=== PATIENT | female | born 1980 | race Caucasian/White ===

== ENCOUNTER 2017-10-11 21:41 | Emergency (ER) | payer BC, SELFPAY ==
[2017-10-11 21:41] VITALS: BP 160/83; PULSE 93; RESP 15; TEMP 36.8; O2SAT 98; BMI 36.3
--- NOTE | 2017-10-11 21:48 | RAD_ITS ---
STUDY: X-RAY - RIGHT ANKLE REASON FOR EXAM: Female, 36 years old. Ankle pain. TECHNIQUE: 3 view(s) of the ankle. COMPARISON: None. FINDINGS: Normal visualized distal tibia and fibula. Normal medial and lateral malleoli. Normal tibiotalar articulation and ankle mortise. Normal visualized talus and calcaneus. The visualized subtalar, talonavicular, calcaneocuboid and tarsal articulations are normal. The soft tissue structures are unremarkable. RAD/Ankle min 3 Views IMPRESSION: Normal x-ray examination of the ankle. Electronically Signed: Jessica Black MD at 22:05 EDT Tel , Service support ,
--- NOTE | 2017-10-11 21:56 | ED.VISSUMM ---
- ER Visit Summary Date of Service: 10/11/17 Chief Complaint: [Injury right ankle] History of Present Illness: The patient is a 36 F [presents the emergency department complaint of injury to her right ankle that occurred about a half an hour ago. Patient states that she was coming down some outside steps when she twisted her ankle when she missed a step. Patient did fall but denies any other injuries. Patient having a hard time bearing weight secondary to pain.] Physical Examination: [Right ankle-patient has some mild soft tissue swelling over the lateral malleolus. No pain at the base of the fifth metatarsal. No pain at the proximal fibular head. She is neurovascular intact with normal station normal cap refill HEENT-PERRLA, EOMI. Cranial nerves II through XII grossly intact. TMs clear. Mucous membranes moist. No adenopathy. Cardiovascular-regular rate and rhythm without murmur or ectopy Lungs-clear to auscultation, chest wall stable without crepitus or subcu emphysema Abdomen-normoactive bowel sounds, soft, nontender, no rebound or rigidity, no peritoneal signs. Extremities-intact ?4, normal range of motion, normal pulses, atraumatic] Test Results: X-rays of the right ankle obtained read by myself as no acute fractures, official radiology reading pending [] Emergency Department Course and Treatment: [Patient was placed in an air splint and given crutches] Treatment Plan: [Patient given a prescription for naproxen and Badger for pain. Patient advised to ice and elevate extremity. Patient follow-up with primary care physician in 5-7 days.] Disposition: [Discharged home in stable condition] Impression: [Right ankle sprain] This note was generated with [employer] dictation software. It may contain incorrect words, spelling, and punctuation that were not noted in review of the chart prior to signing ED Disposition - Plan for ED Patient: Chief Complaint: Lower Extremity Injury Referrals: Tunde Galarza MD [Primary Care Provider] -
--- NOTE | 2017-10-11 21:59 | DCINST.ED_ITS ---
ED Disposition - Plan for ED Patient: Chief Complaint: Lower Extremity Injury Instructions: ED Sprain Ankle W X Ray Prescriptions: Hydrocodone Bitart/Apap 5-325 [[place] 5MG-325MG] 1 tab PO Q4H PRN PRN 2 Days #10 tab PRN Reason: Pain Naproxen [Naprosyn] 500 mg PO BID PRN #20 tab Referrals: Tunde Galarza MD [Primary Care Provider] - 5-7 Days
[2017-10-11] MEDS: HYDROcodone Bitartrate/Apap 5/325 Tablet PO (22:16)
[2017-10-11 22:17] VITALS: PULSE 94; RESP 14; O2SAT 98
== END 2017-10-11 22:32 | disposition home or self-care (01) ==
LOC: ED 22:03
PROVIDERS: Emergency Provider Emergency Medicine; Family Provider Family Medicine; PCP Family Medicine
DX: S93.401A Sprain of unspecified ligament of right ankle, initial encounter (principal); X50.1XXA Overexertion from prolonged static or awkward postures, initial encounter; Y93.89 Activity, other specified; Y92.9 Unspecified place or not applicable
CPT/HCPCS: 73610; 99284

== ENCOUNTER 2017-11-18 09:34 | Emergency (ER) | payer BC, SELFPAY ==
[2017-11-18 09:35] VITALS: BP 162/84; PULSE 99; RESP 18; TEMP 36.6; O2SAT 100; BMI 36.5
--- NOTE | 2017-11-18 09:50 | RAD_ITS ---
STUDY: X-RAY CHEST REASON FOR EXAM: Female, 37 years old. Chest pain. TECHNIQUE: PA and lateral views of the chest. COMPARISON: None. FINDINGS: EKG electrodes are seen. Subtle increased markings in the right upper lobe. Questionable early infiltrate. There is no demonstrated pleural abnormality. Normal size heart. Normal mediastinum and clementina. Normal visualized pulmonary arteries. Normal visualized aortic arch and descending thoracic aorta. Normal visualized thoracic spine. Normal visualized ribs, clavicles, and shoulders. There is no demonstrated abnormality of the visualized soft tissue structures of the upper abdomen. RAD/Chest PA and Lateral IMPRESSION: Questionable early right upper lobe infiltrate. Electronically Signed: Slava Bernabe MD at 10:14 EDT Tel [phone], Service support ,
--- NOTE | 2017-11-18 09:50 | EKG12_ITS ---
Test Reason : CHEST PAIN Blood Pressure : / mmHG Vent. Rate : 090 BPM Atrial Rate : 090 BPM P-R Int : 150 ms QRS Dur : 074 ms QT Int : 342 ms P-R-T Axes : 045 048 010 degrees QTc Int : 418 ms Normal sinus rhythm Normal ECG Confirmed by TOMAS VALLEJO MD ([id number]), advertising editor DUSTIN BARRY ([id number]) on 11/20/2017 1:23:06 PM Referred By: ED Confirmed By:TOMAS VALLEJO MD
[2017-11-18 09:51] VITALS: O2SAT 99
--- NOTE | 2017-11-18 09:53 | ED.DCSUM_ITS ---
- ER Visit Summary Date of Service: 11/18/17 Chief Complaint: Right-sided chest pain History of Present Illness: The patient is a 37 F who states that 0430 hours this morning she was awoken from sleep with a sharp right-sided chest pain. She states it is worse with deep inspiration and cough. She denies any rash. She states that she chronically has a cough from smoking. She quit smoking 6 months ago. She denies any history of cancer prior DVT PE recent immobilization or recent travel surgery. Patient states that her father of pulmonary embolism. She notes no exertional symptoms. She states that yesterday she felt fine and did not have any symptoms. Pain is not worse with palpation. She states that she feels it in the front and wraps around to the back about the same level. Physical Examination: Afebrile vital signs are stable Gen: Well-nourished well-developed Head: Normocephalic atraumatic Eyes: Perrl EOMI ENT: TMs clear no rhinorrhea moist mucous membranes Neck: Supple no lymphadenopathy no JVD nontender CVS: Regular rate rhythm no murmurs normal S1-S2 Respiratory: No distress clear to auscultation bilaterally chest nontender Abdomen: Soft nontender nondistended normal bowel sounds no masses Back: Nontender Extremity: Nontender no edema Skin: Normal color no rash Neuro: alert orientated ?3 CN II-XII intact normal strength sensation reflexes gait cerebellar Psych: Normal affect normal mood Test Results: EKG demonstrates a sinus rhythm at a rate of 90 CBC BMP troponin d -dimer test within the normal limits or negative. Chest x-ray showed a possible right upper lobe pneumonia. CT Luanne of the chest did not demonstrate an obvious pulmonary embolism. Is a 2.3 x 1.9 x 1.7 cm mass abutting the anterior surface of the right upper lobe. Could represent neoplasm versus atypical pneumonia. Emergency Department Course and Treatment: LEENA score 0 the patient will be started on doxycycline. I spoke with her primary care physician Dr. Galarza at 1148 hrs to ensure follow-up for repeat imaging. Patient understands our plan. Impression: 1. Chest pain 2. Atypical pneumonia This note was generated with [employer] software. It may contain incorrect words, spelling, and punctuation that were not noted in review of the chart prior to signing ED Disposition - Plan for ED Patient: Disposition: Home or Assisted Living Chief Complaint: Chest Other Instructions: ED Pneumonia Adult Prescriptions: Doxycycline Monohydrate 100 mg PO BID #14 cap Referrals: Tnude Galarza MD [Primary Care Provider] - (call to arrange follow up)
[2017-11-18] MEDS: Ketorolac 30 MG/ML Syringe IV (09:54)
[2017-11-18 10:00] LABS: Absolute Lymphocyte Count 1.53 X10^3/ul (0.83-4.51); Absolute Neutrophil Count 5.7 X10^3/uL (2.0-7.7); Basophil# 0.06 X10^3/uL; Basophil% 0.8 % (0-1); Eosinophil# 0.15 X10^3/uL; Eosinophils% 1.9 % (0-5); Hematocrit 38.8 % (37-47); Hemoglobin 13.1 g/dl (12.0-15.0); Lymphocyte # 1.53 X10^3/ul (4.0); Lymphocyte % 19.3 % (19-41); Mean Corp Hgb Conc 33.8 g/gl (32-36); Mean Corpuscular Hgb 28.7 pg (27.0-32.0); Mean Corpuscular Volume 85.1 fL (81-99); Mean Platelet Vol. 10.4 fl (6.2-12.0); Monocyte# 0.46 X10^3/uL; Monocyte% 5.8 % (0-10); Neutrophil # 5.72 X10^3/uL (2.7-7.7); Neutrophil % 72.1 % (47-70); POSITIVE COUNT NO; POSITIVE DIFFERENTIAL NO; POSITIVE MORPHOLOGY NO; Platelet Count 329 K/mm3 (150-450); RBC Distribution Width CV 13.1 % (11.6-14.6); RBC Distribution Width SD 40.1 fl (35.1-43.9); Red Blood Count 4.56 M/mm3 (4.2-5.4); White Blood Count 7.9 K/mm3 (4.4-11.0)
[2017-11-18 10:17] LABS: D-Dimer Quantitative (DVT/PE) 0.29 FEU/ug/m (0.27-0.49)
[2017-11-18 10:18] LABS: Anion Gap 9 (5-15); BUN 15 mg/dL (7-18); BUN/Creat Ratio 16.1 RATIO (10-20); Calcium,Total 9.3 mg/dL (8.5-10.1); Chloride 102 mmol/L (98-107); Creatinine, Serum 0.93 mg/dL (0.55-1.02); EST Glomerular Filtration Rate 73 mL/min (>60); Est Glom Filt Rate - Afr Amer 88 mL/min (>60); Estimated Creatinine Clearance 82.11 ml/min; Glucose 97 mg/dL (74-106); Potassium 3.8 mmol/L (3.5-5.1); Sodium Level 137 mmol/L (136-145)
[2017-11-18 10:44] LABS: Pregnancy, Serum, hCG Quali. NEGATIVE Negative (0-9 Nonpreg)
--- NOTE | 2017-11-18 10:55 | CT_ITS ---
STUDY: CTA CHEST REASON FOR EXAM: Female, 37 years old. Right-sided chest pain. RADIATION DOSAGE (If Supplied By Facility): CTDIvol = ( 18.07 ) mGy, DLP = ( 629.69 ) mGycm TECHNIQUE: The examination was performed with the intravenous administration of 75CC ml of Isovue 300 contrast material. Post-processing of the angiographic images was performed, with multiplanar reformation and MIP (maximum intensity projection) reconstruction. Individualized dose optimization techniques were used for this CT. COMPARISON: None. FINDINGS: Less than optimal contrast enhancement of the main pulmonary artery and right and left pulmonary arteries. Suboptimal contrast enhancement of the bilateral peripheral pulmonary arteries. No central pulmonary emboli. Peripheral pulmonary emboli cannot be evaluated. Normal thoracic aorta and visualized great vessels. There is no demonstrated aortic dissection. Normal heart and pericardium. Normal mediastinum. Normal hilar regions. Normal visualized trachea and bronchi. The lungs are well expanded. 2.3 x 1.9 x 1.7 cm mass near the anterior surface of the anterior segment of the right upper lobe. This is worrisome for neoplasm. No other pulmonary nodules. Normal pleura. Normal chest wall structures. Minimal anterior wedging of the T8 superior endplates may be secondary to remote injury. No acute osseous abnormality. Prominent limbs of the left adrenal gland is suggestive of hyperplasia. Normal right adrenal gland. CT/CTA Chest W/WO Contrast IMPRESSION: 1. Less than optimal contrast enhancement of the main pulmonary artery and right and left pulmonary arteries. No suspicious central pulmonary emboli. 2. Suboptimal contrast enhancement of the bilateral peripheral pulmonary arteries. Peripheral pulmonary emboli cannot be evaluated. 3. No CTA evidence of thoracic aortic aneurysm or thoracic aortic dissection. 4. 2.3 x 1.9 x 1.7 cm mass abutting the anterior surface of the anterior segment of the right upper lobe. This is worrisome for neoplasm but atypical pneumonia simulating neoplasm cannot be entirely excluded. Comparison with serial chest radiographs will help clarify if they are available. This is feasible for CT-guided core biopsy and will be helpful if this does not resolve in one month. Electronically Signed: Paul Lynch MD at 11:36 EDT , Service support ,
[2017-11-18 11:52] VITALS: BP 108/74; PULSE 71; RESP 15; O2SAT 99
== END 2017-11-18 11:56 | disposition home or self-care (01) ==
PROVIDERS: Emergency Provider Emergency Medicine; Family Provider Family Medicine; PCP Family Medicine
DX: R07.9 Chest pain, unspecified (principal); J18.9 Pneumonia, unspecified organism; Z87.891 Personal history of nicotine dependence; K21.9 Gastro-esophageal reflux disease without esophagitis
CPT/HCPCS: 71046; 71275; 80048; 84484; 84703; 85025; 85379; 93005; 96374; 99285; Q9967; A4216

== ENCOUNTER 2023-12-19 22:55 | Inpatient (IN) | payer BC, SELFPAY ==
[2023-12-19 22:55] VITALS: BP 168/109; PULSE 85; RESP 16; TEMP 36.5; O2SAT 97; BMI 39.2
--- NOTE | 2023-12-19 23:20 | EKG12_ITS ---
Test Reason : CP Blood Pressure : / mmHG Vent. Rate : 065 BPM Atrial Rate : 065 BPM P-R Int : 154 ms QRS Dur : 078 ms QT Int : 394 ms P-R-T Axes : 057 039 031 degrees QTc Int : 409 ms Normal sinus rhythm ST elevation consider inferior injury or acute infarct ACUTE MT / STEMI Abnormal ECG Confirmed by Ilan Chawla ([id number]), movie editor WU RAZO ([id number]) on 12/21/2023 9:38:28 AM Referred By: TINA Confirmed By:Ilan Chawla
--- NOTE | 2023-12-19 23:28 | ED.VIS.CHEST ---
HPI History of Present Illness Chief Complaint: Chest Pain Informant: patient Narrative Narrative: Patient presents from work dull chest pain 9 PM. She runs [employer]. No dyspnea nausea. She reports 7 PM she noted tingling bilateral feet that moved up her legs into her chest and out from the shoulder to the fingers. No history of similar. Denies recent illness. States 3 days ago was placed on a Medrol Dosepak by her PCP due to myalgias and tendinitis. She had no recent cough or viral illness. Tobacco history father with ME at the age of 40-50. She is on medications for hypertension. Denies diabetes or hyperlipidemia. Denies any recent travel, surgeries, or immobilizations. No history of PE or DVT. Denies any history of stress test or cardiac cath. Reports has had EKGs in the past with no abnormalities. Prior Similar Symptoms: No CVD Risk Factors: Positive for Hypertension, Family History 1' </=55 and Smoking; Negative for Diabetes or Hypercholesterolemia PE Risk Factors: Negative for Recent Travel/Surgery, Recent Immobilization, Prior DVT or PE or OCP + Smoking + >/=35 [facility] Medical History (Updated 12/20/23 @ 01:[address] Yusef Juarez DO) Tachycardia Anxiety Hypertension Home Medications ?Medication ?Instructions ?Recorded ?Last Taken ?Type amlodipine 10 mg tablet 10 mg PO DAILY 12/19/23 Unknown History esomeprazole magnesium 40 mg 40 mg PO DAILY 12/19/23 Unknown History capsule,delayed release fluoxetine 10 mg capsule 10 mg PO DAILY 12/19/23 Unknown History fluoxetine 20 mg capsule 20 mg PO DAILY 12/19/23 Unknown History metoprolol succinate 25 mg 25 mg PO DAILY 12/19/23 Unknown History tablet,extended release 24 hr prednisone 10 mg tablet mg PO 12/19/23 Unknown History Allergy/AdvReac Type Severity Reaction Status Date / Time acetaminophen (From Vicodin) Allergy Intermediate Rash Verified 12/19/23 22:56 hydrocodone (From Vicodin) Allergy Intermediate Rash Verified 12/19/23 22:56 cephalexin (From Keflex) Allergy Hives Verified 12/19/23 22:56 Social History (System 02/12/21 @ 10:44 by Taz Velasquez) Smoking Status: Current every day smoker tobacco type: cigarettes EXAM Physical Exam Const Vital Signs: 12/19/23 22:55 12/19/23 23:29 12/19/23 23:34 Temperature 97.7 F L Temperature Source Oral Pulse Rate 85 Respiratory Rate 16 Respiratory Effort Normal Non-Labored Respiratory Pattern Blood Pressure 168/109 H Blood Pressure Mean 128 Pulse Ox 97 Oxygen Delivery Method Room Air Room Air 12/19/23 23:34 12/20/23 00:55 Temperature Temperature Source Pulse Rate 64 Respiratory Rate 12 Respiratory Effort Normal Non-Labored Respiratory Pattern Normal Blood Pressure 152/83 H Blood Pressure Mean 106 Pulse Ox 95 Oxygen Delivery Method Room Air Heart Score History: Moderately Suspicious ECG: Nonspecific Repolarization Age: </= 45 years Risk Factors: >/= 3 Risk Factors or History of CAD Troponin: >/=3 x Normal Limit Score: 6 MDM MDM MDM Narrative Medical decision making narrative: Interventions / MDM: Differential diagnosis: NSTEMI, chest pain, paresthesia Diagnosis considered but do not suspect: My EKG interpretation: Sinus rate of 65, slight elevations in inferior leads however no depressions. Compared to EKG November 2017 this was not there. EKG #2 at 0006: Unchanged. Imaging independently reviewed and interpreted by myself: Chest x-ray 1 view: No acute process. CTA chest abdomen pelvis: External documents reviewed: N/A Test considered but not ordered:N/A ED course: EKG slight elevations with no depressions inferior leads. Cardiac labs ordered including aspirin. I spoke with specimen preparation assistant Dr. Jolly at 2327 after evaluating the patient. Reports no clear evidence of STEMI at this time. Agrees with a cardiac workup. He would like a repeat EKG in 15 minutes and reevaluation the patient. Of note tingling going up the legs however at the arms went proximal to distal, less consistent with Guillain-Beltre? syndrome. She has no family history of Guillain-Beltre?. 2355: Symptoms subsided only mild tingling her feet. Repeat EKG ordered. Blood work pending. 0010: EKG unchanged. Cardiac enzyme is pending. Chest x-ray negative for any acute process. 0020: Cardiac enzyme returned at 294. Patient chest pain-free. I rediscussed with television reporter Dr. Jolly, patient being chest pain-free will place a nitro paste. Heparin drip will be ordered. With her atypical tingling the feet, she does have pulses without any cyanosis. He would like CT angiogram chest abdomen pelvis ordered for evaluation of the aorta. Would like her admitted to the ICU once this is ruled out. Will start Brilinta if CT negative. 0115: CT scan of discussed with radiologist, noted intimal flap in for aorta. There is no dissection and no aneurysms. He states likely incidental and chronic. Recommended CT scan follow-up in 3 months. Patient confirms there is been no trauma no MVAs here recently. Remains chest pain-free. Brilinta was ordered. Will discuss with hospitalist for admission to the ICU. We did discuss if any return of chest pain symptoms to notify us and to discuss with cardiology any changes. Re-evaluation: stable Disposition discussed with patient/family/significant other: Patient and significant other Case discussed with consulting clinician: Interventional cardiology, hospitalist This note was generated with [employer] dictation software. It may contain incorrect words, spelling, and punctuation that were not noted in checking the note before signing. Lab Data Attestation: I reviewed the patient's lab results. Labs: Laboratory Results - last 24 hr 12/19/23 12/20/23 23:32 00:22 WBC 10.7 RBC 4.21 Hgb 12.2 Hct 37.0 MCV 87.9 MCH 29.0 MCHC 33.0 RDW Std Deviation 47.5 H RDW Coeff of Beba 14.8 H Plt Count 347 MPV 11.3 Immature Gran % (Auto) 0.300 Neut % (Auto) 59.2 Lymph % (Auto) 31.0 [place] % (Auto) 8.0 Eos % (Auto) 0.7 Baso % (Auto) 0.8 Absolute Neuts (auto) 6.4 Absolute Lymphs (auto) 3.32 Nucleated RBC % 0 PT 14.0 INR 1.1 APTT 24.2 Sodium 136 Potassium 3.5 Chloride 102 Carbon Dioxide 26.0 Anion Gap 8 BUN 23 H Creatinine 1.11 H Estim Creat Clear Calc 86.81 Est GFR (MDRD) Af Amer 69 Est GFR (MDRD) Non-Af 57 L BUN/Creatinine Ratio 20.7 H Glucose 97 Calcium 9.2 Troponin I High Sens 294 H* Serum , Qual NEGATIVE Radiography Diagnostic Testing: Clinical Impression(s) from Imaging Studies Chest X-Ray 12/19/23 23:42 IMPRESSION: No radiographic evidence of acute cardiopulmonary disease. Electronically Signed: Toni Keene MD at 0:15 EDT , Chest/Abdomen/Pelvis CTA 12/20/23 00:27 IMPRESSION: 1. No significant abnormalities involving the thoracic aorta, no pulmonary embolism. 2. Small linear flap in the abdominal aorta below the level of the renal arteries measuring 9 x 6 mm. This is not a true dissection flap, and may be chronic, but a follow-up CT in 3 months is recommended to evaluate for stability. 3. Hepatomegaly with fatty infiltration. N.B. : The above Results were Read Back by Toni Keene MD to Yusef Juarez DO, and understanding confirmed on 12/20/2023 01:15:16 (ET). Electronically Signed: Toni Keene MD at 1:16 EDT , Critical Care Time Critical Care Time: Yes Critical care time (excluding procedures): 30-74 minutes, Discussing w/Patient &/or Family/Quality Cloth Tester, Discussing w/Consultants, Arranging Admission or Transfer, Performing Direct Patient Care at Bedside and - (35 minutes) Discharge Plan Dx/Rx/DC Orders Clinical Impression: Non-ST elevation ME (NSTEMI), Chest pain, Paresthesia, History of hypertension, Tobacco dependence Disposition Disposition: Acute Care Hospital [facility]
[2023-12-19] MEDS: Aspirin 81 MG TAB.CHEW 324 MG PO (23:39)
--- NOTE | 2023-12-19 23:42 | RAD_ITS ---
EXAM: XR CHEST, 1 VIEW CLINICAL INDICATION: chest pain TECHNIQUE: Frontal view of the chest. COMPARISON: No relevant prior studies available. FINDINGS: LUNGS AND PLEURAL SPACES: Unremarkable. No consolidation or edema. No pneumothorax. No effusion. HEART: Unremarkable. Cardiac silhouette not enlarged. MEDIASTINUM: Central airways and mediastinal contour are unremarkable. BONES/JOINTS: Unremarkable. No acute fracture. SOFT TISSUES: Unremarkable. RAD/Chest 1 View (Portable) IMPRESSION: No radiographic evidence of acute cardiopulmonary disease. Electronically Signed: Toni Keene MD at 0:15 EDT ,
--- NOTE | 2023-12-19 23:59 | EKG12_ITS ---
Test Reason : REPEAT Blood Pressure : / mmHG Vent. Rate : 060 BPM Atrial Rate : 060 BPM P-R Int : 150 ms QRS Dur : 080 ms QT Int : 408 ms P-R-T Axes : 060 040 031 degrees QTc Int : 408 ms Normal sinus rhythm with sinus arrhythmia Nonspecific ST abnormality Abnormal ECG Confirmed by Ilan Chawla ([id number]), features editor WU RAZO ([id number]) on 12/21/2023 9:38:44 AM Referred By: ANGELA Confirmed By:Ilan Chawla
[2023-12-20] VITALS (16 sets, daily range): BP systolic 114–152; BP diastolic 63–91; PULSE 58–68; RESP 12–19; TEMP 36.3–36.9; O2SAT 94–98; BMI 38.9
[2023-12-20 00:03] LABS: Internal QC Validated? YES +Cl - CLEAR BKGD; Pregnancy, Serum, hCG Quali. NEGATIVE Negative
[2023-12-20 00:17] LABS: Anion Gap 8 (5-15); BUN 23 mg/dL (7-18); BUN/Creat Ratio 20.7 RATIO (10-20); Calcium,Total 9.2 mg/dL (8.5-10.1); Chloride 102 mmol/L (98-107); Creatinine, Serum 1.11 mg/dL (0.55-1.02); EST Glomerular Filtration Rate 57 mL/min (>60); Est Glom Filt Rate - Afr Amer 69 mL/min (>60); Estimated Creatinine Clearance 86.81 ml/min; Glucose 97 mg/dL (74-106); Potassium 3.5 mmol/L (3.5-5.1); Sodium Level 136 mmol/L (136-145); Troponin-I HS (w/2H Reflex) 294 pg/mL (3.0-54.0)
[2023-12-20 00:19] LABS: Absolute Lymphocyte Count 3.32 X10^3/uL (0.83-4.51); Absolute Neutrophil Count 6.4 X10^3/uL (2.0-7.7); Basophil# 0.09 X10^3/uL; Basophil% 0.8 % (0-1); Eosinophil# 0.07 X10^3/uL; Eosinophils% 0.7 % (0-5); Hemoglobin 12.2 g/dL (12.0-15.0); Lymphocyte # 3.32 X10^3/ul (0.83-4.51); Mean Corpuscular Volume 87.9 fL (81-99); Mean Platelet Vol. 11.3 fl (6.2-12.0); Monocyte# 0.86 X10^3/uL; NRBC Flagged by Analyzer 0 % (0-5); Neutrophil # 6.35 X10^3/uL (2.7-7.7); Neutrophil % 59.2 % (47-70); Platelet Count 347 K/mm3 (150-450); RBC Distribution Width CV 14.8 % (11.6-14.6); RBC Distribution Width SD 47.5 fl (35.1-43.9); Red Blood Count 4.21 M/mm3 (4.2-5.4); White Blood Count 10.7 K/mm3 (4.4-11.0)
--- NOTE | 2023-12-20 00:27 | CT_ITS ---
EXAM: CT ANGIOGRAPHY CHEST, ABDOMEN AND PELVIS WITH INTRAVENOUS CONTRAST CLINICAL INDICATION: chest pain TECHNIQUE: Helically acquired angiography images were obtained of the chest, abdomen and pelvis with intravenous contrast. This CT exam was performed using one or more of the following dose reduction techniques: automated exposure control, adjustment of the mA and/or kV according to patient size, and/or use of iterative reconstruction technique. MIP reconstructed images were created and reviewed. CONTRAST: IV 100mL Isovue-370 RADIATION DOSE: CTDIvol = 13.04 mGy, DLP = 1328.12 mGy-cm COMPARISON: No relevant prior studies available. FINDINGS: VASCULATURE: AORTA: Small linear flap in the abdominal aorta below the level of the renal arteries measuring 9 x 6 mm. PULMONARY ARTERIES: No filling defects identified in the pulmonary arteries to suggest pulmonary embolism. Normal in caliber. GREAT VESSELS OF AORTIC ARCH: Unremarkable. Normal in caliber. No dissection. CELIAC TRUNK AND MESENTERIC ARTERIES: No acute findings. No occlusion or significant stenosis. No dissection. RENAL ARTERIES: No acute findings. No occlusion or significant stenosis. No dissection. ILIAC ARTERIES: No acute findings. No occlusion or significant stenosis. No dissection. CHEST: LUNGS AND PLEURAL SPACES: Unremarkable. No mass. No consolidation or edema. No pleural effusion or thickening. No pneumothorax. HEART: Unremarkable. Heart size is normal. No pericardial effusion. MEDIASTINUM: Unremarkable. No mediastinal or hilar adenopathy. Esophagus is unremarkable. No hiatal hernia. THYROID: Unremarkable. No thyroid lesions. ABDOMEN: LIVER: Hepatomegaly with fatty infiltration. GALLBLADDER AND BILE DUCTS: Unremarkable. No calcified gallstones. No gallbladder distention or wall edema. No intra- or extrahepatic biliary ductal dilation. PANCREAS: Unremarkable. No focal cystic or solid mass. SPLEEN: Unremarkable. Normal size without focal cystic or solid mass. ADRENALS: Unremarkable. No nodules. KIDNEYS AND URETERS: Unremarkable. Normal renal size and position. No hydronephrosis. STOMACH AND BOWEL: Unremarkable. No stomach or bowel distention. No focal inflammatory change. PELVIS: APPENDIX: The appendix is normal. BLADDER: Unremarkable. REPRODUCTIVE: Unremarkable as visualized. No mass. CHEST, ABDOMEN and PELVIS: INTRAPERITONEAL SPACE: Unremarkable. No ascites or other fluid collection. No free air. BONES/JOINTS: Unremarkable. No suspicious lytic or blastic abnormality. SOFT TISSUES: Unremarkable. No discrete abdominal or pelvic wall hernia. LYMPH NODES: Unremarkable. No enlarged lymph nodes. CT/CTA Chst, Abd, Pel W and/or WO IMPRESSION: 1. No significant abnormalities involving the thoracic aorta, no pulmonary embolism. 2. Small linear flap in the abdominal aorta below the level of the renal arteries measuring 9 x 6 mm. This is not a true dissection flap, and may be chronic, but a follow-up CT in 3 months is recommended to evaluate for stability. 3. Hepatomegaly with fatty infiltration. N.B. : The above Results were Read Back by Toni Keene MD to Yusef Juarez DO, and understanding confirmed on 12/20/2023 01:15:16 (ET). Electronically Signed: Toni Keene MD at 1:16 EDT ,
[2023-12-20 00:38] LABS: International Normalized Ratio 1.1
[2023-12-20 00:39] LABS: Partial Thromboplast Time 24.2 Seconds (24.1-36.2)
[2023-12-20] MEDS: Heparin Injection (Vial) 5,000 UNIT/ML VIAL 4000 UNIT IV (00:52)
[2023-12-20] MEDS: HEPARIN/D5w 25,000 UNITS 25,000 UNITS/250 ML IV.SOLN. 10 UNITS CONT INF (00:52)
[2023-12-20] MEDS: Nitroglycerin Oint 1 INCH PACKET TD (00:55)
--- NOTE | 2023-12-20 01:23 | PCM.HP.STD ---
[facility] - General General Date of Admission: 12/20/23 Date of Service: 12/20/23 Chief Complaint: Chest Pain and Tingling in Fingers. HPI Narrative LISA CALLEJAS, is a 43 F with a past medical history of essential hypertension, tobacco abuse, overweight; with BMI of 39.3 this admission, positive family history of premature coronary artery disease in her father who had an MD at ~45, history of depression; on fluoxetine, GERD; on Esomeprazole, listed allergy to acetaminophen (rash), listed allergy to hydrocodone (rash), listed allergy to Keflex (hives) and recently diagnosed myalgias and tendinitis; with her PCP starting on Medrol Dosepak ~3 days ago who presents to [facility] ER complaining of chest pain and tingling in her fingers. Ms. Callejas reports her symptoms began approximately 3 hours prior to arrival when she experienced bilateral tingling in her feet and moved up into her legs and chest and from there to her shoulders and fingers. Then around 9 PM she developed chest pain at rest that was substernal, pressure-like, with a tingling sensation in her extremities with nothing seeming to make the pain better or worse. She denies a history of similar previous episodes, recent medication changes, recent trauma or recent travel. There was no report of fever, chills, nausea, vomiting or diaphoresis. In the ER she was noted to have an elevated initial troponin of 294 pg/mL followed by a second upward trending troponin of 773 pg/mL consistent with suspected non-ST elevation MD with CT scan of the abdomen and pelvis revealing no PE but did reveal a small linear flap in the abdominal aorta below the level of the renal arteries measuring to ~9 mm x ~6 mm that was not suspected to be a true dissection flap and is likely chronic with follow-up CT in 3 months recommended to evaluate for stability along with incidentally noted Hepatomegaly with Fatty Infiltration. She was then admitted to the ICU for ongoing treatment for stay with expected to extend beyond 2 midnights. [facility] Medical History Tachycardia Anxiety Hypertension Home Medications ?Medication ?Instructions ?Recorded ?Last Taken ?Type amlodipine 10 mg tablet 10 mg PO DAILY 12/19/23 Unknown History esomeprazole magnesium 40 mg 40 mg PO DAILY 12/19/23 Unknown History capsule,delayed release fluoxetine 10 mg capsule 10 mg PO DAILY 12/19/23 Unknown History fluoxetine 20 mg capsule 20 mg PO DAILY 12/19/23 Unknown History metoprolol succinate 25 mg 25 mg PO DAILY 12/19/23 Unknown History tablet,extended release 24 hr prednisone 10 mg tablet mg PO 12/19/23 Unknown History Allergy/AdvReac Type Severity Reaction Status Date / Time acetaminophen (From Vicodin) Allergy Intermediate Rash Verified 12/19/23 22:56 hydrocodone (From Vicodin) Allergy Intermediate Rash Verified 12/19/23 22:56 cephalexin (From Keflex) Allergy Hives Verified 12/19/23 22:56 Social History Smoking Status: Current every day smoker tobacco type: cigarettes ROS ROS Narrative Review of systems: Constitutional: Patient denies fever or chills. Eyes: Patient denies changes in vision or discharge from eyes. ENT: Patient denies runny nose, sore throat or ear pain. Resp: Patient denies SOB or cough. CV: Patient admits to chest pain with paresthesias in her extremities as per HPI. GI: Patient denies abdominal pain, nausea, vomiting, diarrhea or constipation. : Patient denies dysuria or hematuria. MSK: Patient denies arthralgias or myalgias. Skin: Patient denies rash, abscess or jaundice. Neuro: Patient admits to paresthesias in her extremities as per HPI. She denies headache or focal neurologic weakness. Psych: Patient admits to heightened anxiety due to her chest pain and paresthesias but she denies SI or HI. Hematology: Patient denies easy bleeding or easy bruisability. Endocrinology: Patient denies polyuria, polydipsia or polyphagia. 14 point ROS otherwise negative except for positives noted above in HPI. Vital Signs Vital Signs Vital Signs: 12/19/23 22:55 12/19/23 23:29 12/19/23 23:34 Temperature 97.7 F L Temperature Source Oral Pulse Rate 85 Respiratory Rate 16 Respiratory Effort Normal Non-Labored Respiratory Pattern Blood Pressure 168/109 H Blood Pressure Mean 128 Pulse Ox 97 Oxygen Delivery Method Room Air Room Air 12/19/23 23:34 12/20/23 00:55 Temperature Temperature Source Pulse Rate 64 Respiratory Rate 12 Respiratory Effort Normal Non-Labored Respiratory Pattern Normal Blood Pressure 152/83 H Blood Pressure Mean 106 Pulse Ox 95 Oxygen Delivery Method Room Air Weight Weight: 250 lb 11.2 oz Body Mass Index (BMI) 39.2 Physical Exam Const alert, oriented x3 and no apparent distress Constitutional Narrative: Patient is obese. General Appearance: cooperative HEENT normocephalic, head/scalp atraumatic, hearing grossly normal bilaterally and moist oral mucous membranes Eyes PERRL and EOMs intact bilaterally Neck no lymphadenopathy and supple Resp normal respiratory effort, no retractions, no use of accessory muscles and clear to auscultation bilaterally Cardio regular rate and regular rhythm GI normal to inspection, nondistended, normoactive bowel sounds, soft to palpation, non-tender and non-distended GI Narrative: Obese. Extremity normal to inspection, full ROM and no clubbing, cyanosis or edema Skin Skin Narrative: Patient has no evidence of rash, abscess or jaundice. Neuro oriented x3, CN's II-XII intact bilaterally, moves all extremities and no focal motor deficits Sensorium / Orientation: awake, alert, oriented to person, oriented to place and oriented to time Speech: speech normal Psych Mood & Affect: anxious Results Medical Records Data Attestation: I reviewed the patient's medical records Lab / Micro Data Attestation: I reviewed the patient's lab results. 12/19/23 23:32 12/19/23 23:32 Labs: Laboratory Results - last 24 hr 12/19/23 23:32: WBC 10.7, RBC 4.21, Hgb 12.2, Hct 37.0, MCV 87.9, MCH 29.0, MCHC 33.0, RDW Std Deviation 47.5 H, RDW Coeff of Beba 14.8 H, Plt Count 347, MPV 11.3, Immature Gran % (Auto) 0.300, Neut % (Auto) 59.2, Lymph % (Auto) 31.0, [place] % (Auto) 8.0, Eos % (Auto) 0.7, Baso % (Auto) 0.8, Absolute Neuts (auto) 6.4, Absolute Lymphs (auto) 3.32, Nucleated RBC % 0, Sodium 136, Potassium 3.5, Chloride 102, Carbon Dioxide 26.0, Anion Gap 8, BUN 23 H, Creatinine 1.11 H, Estim Creat Clear Calc 86.81, Est GFR (MDRD) Af Amer 69, Est GFR (MDRD) Non-Af 57 L, BUN/Creatinine Ratio 20.7 H, Glucose 97, Calcium 9.2, Troponin I High Sens 294 H*, Serum , Qual NEGATIVE 12/20/23 00:22: PT 14.0, INR 1.1, APTT 24.2 Imaging Radiology Impression Chest X-Ray 12/19/23 23:42 IMPRESSION: No radiographic evidence of acute cardiopulmonary disease. Electronically Signed: Toni Keene MD at 0:15 EDT Reading Location ID and State: [facility] / [place] Tel , Service support , Chest/Abdomen/Pelvis CTA 12/20/23 00:27 IMPRESSION: 1. No significant abnormalities involving the thoracic aorta, no pulmonary embolism. 2. Small linear flap in the abdominal aorta below the level of the renal arteries measuring 9 x 6 mm. This is not a true dissection flap, and may be chronic, but a follow-up CT in 3 months is recommended to evaluate for stability. 3. Hepatomegaly with fatty infiltration. N.B. : The above Results were Read Back by Toni Keene MD to Yusef Juarez DO, and understanding confirmed on 12/20/2023 01:15:16 (ET). Electronically Signed: Toni Keene MD at 1:16 EDT Reading Location ID and State: [facility] / [place] Tel , Service support , Assessment & Plan Assessment/Plan (1) Non-ST elevation [place] (NSTEMI): (2) Chest pain: QUALIFIERS: Chest pain type: chest pain due to myocardial ischemia Ischemic chest pain type: unspecified angina pectoris type Qualified Code(s): I25.9 - Chronic ischemic heart disease, unspecified (3) Paresthesia: (4) History of hypertension: (5) Tobacco dependence: (6) Family history of cardiac disorder in father: PLAN: Plan 1. Elevated initial troponin of 294 pg/mL followed by a second upward trending troponin of 773 pg/mL consistent with suspected non-ST elevation MD - Admit to ICU. Continue IV heparin per cardiac protocol with ECASA and Brilinta. Serialize troponin. Check echocardiogram to evaluate LVEF. Give Morphine IV prn for severe (level 6-10/10) pain. Finally, we will consult [facility] to see this patient on-rounds in the AM for further recommendations regarding [facility] this admission with help appreciated in advance. 2. CT scan of the abdomen and pelvis done for paresthesias revealing no PE but did reveal a small linear flap in the abdominal aorta below the level of the renal arteries measuring to ~9 mm x ~6 mm that was not suspected to be a true dissection flap and is likely chronic with follow-up CT in 3 months recommended to evaluate for stability complicating #1 - Noted. Patient will need followup CT in ~3 months as recommended by radiology. 3. Premature coronary artery disease in her father who had an MD at ~45 compounding #1 & #2 - Noted. 4. Tobacco Abuse adding to the pathology of #1 - #3 - Tobacco Cessation will be strongly encouraged. 5. Obesity; with BMI of 39.3 this admission adding to the disease burden of #1 - #4 - Weight loss will be recommended. Check TSH. 6. Essential hypertension - Resume Metoprolol and Amlodipine as previous plus give Hydralazine IV prn for systolic blood pressure > 160 mmHg. 7. Recent diagnosis of tendinitis with myalgias - Continue steroid taper. 8. History of depression; on fluoxetine - Maintain Fluoxetine as current schedule and dosing. 9. GERD; on Esomeprazole - Resume PPI as previous. 10. Listed allergy to acetaminophen (rash) - Noted. 11. Listed allergy to hydrocodone (rash) - Noted. 12. Listed allergy to Keflex (hives) - Noted. 13. DVT prophylaxis - Patient already on IV heparin for #1. Total time: Approximately 75 minutes. Charges/Coding Visit Charges Inpatient E&M: 89277 Init Hosp L3
[2023-12-20 01:38] LABS: Reflex Troponin-HS? (from REC) Y
[2023-12-20] MEDS: TICAGRELOR 90 MG TABLET 180 MG PO (01:56)
[2023-12-20 02:16] LABS: Troponin-I HS 773 pg/mL (3.0-54.0)
[2023-12-20] MEDS: LORazepam 2 MG/ML Syringe 0.5 MG IV (03:32)
--- NOTE | 2023-12-20 06:40 | EKG12_ITS ---
Test Reason : CP ADMIT Blood Pressure : / mmHG Vent. Rate : 060 BPM Atrial Rate : 060 BPM P-R Int : 142 ms QRS Dur : 076 ms QT Int : 396 ms P-R-T Axes : 041 035 013 degrees QTc Int : 396 ms Normal sinus rhythm Normal ECG When compared with ECG of 20-DEC-2023 00:06, MANUAL COMPARISON REQUIRED, DATA IS UNCONFIRMED Confirmed by Ilan Chawla ([id number]), sound editor JEFFERY WHITE ([id number]) on 12/21/2023 1:34:10 PM Referred By: FEROZ Confirmed By:Ilan Chawla
[2023-12-20] MEDS: 0.9% Saline Lock 10 ML Syringe IV (06:58)
[2023-12-20] MEDS: Atorvastatin Calcium 80 MG Tablet PO ×2 (06:58→21:05)
--- NOTE | 2023-12-20 07:30 | PN.HOSP_ITS ---
Reason for Visit Reason for Visit: Diagnoses Nicotine dependence, unspecified, uncomplicated (12/20/23) Non-ST elevation (NSTEMI) myocardial infarction (12/20/23) Chronic ischemic heart disease, unspecified (12/20/23) Chest pain, unspecified (12/20/23) Paresthesia of skin (12/20/23) Family history of ischemic heart disease and other diseases of the circulatory system (12/20/23) Personal history of other diseases of the circulatory system (12/20/23) Subjective Subjective Feels well. No chest pain, shortness of breath currently Denies prior cardiac history. Objective Data Objective Data Vital Signs: Vital Signs Temp Pulse Resp BP Pulse Ox O2 Del Method 36.7 C 68 18 120/78 98 Room Air 12/20/23 02:55 12/20/23 06:46 12/20/23 06:46 12/20/23 06:46 12/20/23 06:46 12/20/23 06:46 Oxygen Delivery Method Room Air Weight: 112.8 kg Body Mass Index (BMI) 38.9 Lab / Micro Data 12/19/23 23:32 12/19/23 23:32 Labs: Laboratory Results - last 24 hr 12/19/23 23:32: WBC 10.7, RBC 4.21, Hgb 12.2, Hct 37.0, MCV 87.9, MCH 29.0, MCHC 33.0, RDW Std Deviation 47.5 H, RDW Coeff of Beba 14.8 H, Plt Count 347, MPV 11.3, Immature Gran % (Auto) 0.300, Neut % (Auto) 59.2, Lymph % (Auto) 31.0, [place] % (Auto) 8.0, Eos % (Auto) 0.7, Baso % (Auto) 0.8, Absolute Neuts (auto) 6.4, Absolute Lymphs (auto) 3.32, Nucleated RBC % 0, Sodium 136, Potassium 3.5, Chloride 102, Carbon Dioxide 26.0, Anion Gap 8, BUN 23 H, Creatinine 1.11 H, Estim Creat Clear Calc 86.81, Est GFR (MDRD) Af Amer 69, Est GFR (MDRD) Non-Af 57 L, BUN/Creatinine Ratio 20.7 H, Glucose 97, Calcium 9.2, Troponin I High Sens 294 H*, Serum , Qual NEGATIVE 12/20/23 00:22: PT 14.0, INR 1.1, APTT 24.2 12/20/23 01:35: Troponin I High Sens 773 H* Radiography Diagnostic Testing: Radiology Impression Chest X-Ray 12/19/23 23:42 IMPRESSION: No radiographic evidence of acute cardiopulmonary disease. Electronically Signed: Toni Keene MD at 0:15 EDT Reading Location ID and State: [facility] / [place] Tel , Service support , Chest/Abdomen/Pelvis CTA 12/20/23 00:27 IMPRESSION: 1. No significant abnormalities involving the thoracic aorta, no pulmonary embolism. 2. Small linear flap in the abdominal aorta below the level of the renal arteries measuring 9 x 6 mm. This is not a true dissection flap, and may be chronic, but a follow-up CT in 3 months is recommended to evaluate for stability. 3. Hepatomegaly with fatty infiltration. N.B. : The above Results were Read Back by Toni Keene MD to Yusef Juarez DO, and understanding confirmed on 12/20/2023 01:15:16 (ET). Electronically Signed: Toni Keene MD at 1:16 EDT Reading Location ID and State: [facility] / [place] Tel , Service support , ADDENDUM: 12/20/23 0123 IMPRESSION: 1. No significant abnormalities involving the thoracic aorta, no pulmonary embolism. 2. Small linear flap in the abdominal aorta below the level of the renal arteries measuring 9 x 6 mm. This is not a true dissection flap, and may be chronic, but a follow-up CT in 3 months is recommended to evaluate for stability. 3. Hepatomegaly with fatty infiltration. N.B. : The above Results were Read Back by Toni Keene MD to Yusef Juarez DO, and understanding confirmed on 12/20/2023 01:15:16 (ET). Electronically Signed: Toni Keene MD at 1:16 EDT , Physical Exam Const alert and no apparent distress HEENT head/scalp atraumatic and moist oral mucous membranes Resp normal respiratory effort, no retractions, no use of accessory muscles and clear to auscultation bilaterally Cardio regular rate, regular rhythm, S1 normal heart sound and S2 normal heart sound GI normal to inspection, nondistended, normoactive bowel sounds, soft to palpation, non-tender and non-distended Psych affect normal Assessment & Plan Assessment/Plan (1) Non-ST elevation [place] (NSTEMI): (2) Chest pain: QUALIFIERS: Chest pain type: chest pain due to myocardial ischemia Ischemic chest pain type: unspecified angina pectoris type Qualified Code(s): I25.9 - Chronic ischemic heart disease, unspecified (3) Paresthesia: PLAN: Plan NSTEMI * trop up to 1632 * heparin gtt, ASA, Atorvastatin, ticagrelor * cardiology consult * check echo. CTA chest negative for PE Abnormal CT * CTA C/A/P: small linear flap in the abdominal aorta below the level of the renal arteries 9x6mm. Not a true dissection flap, and may be chronic. Radiology recommending follow up CT in 3 months. Chronic conditions: * Obesity class II: complicates care and recovery. * HTN: continue metoprolol and amlodipine * Depression: continue fluoxetine * GERD: continue PPI. * Recent tendonitis/myalgias: continue pred taper. VTE prophylaxis: not indicated as already on anticoagulation. Stable for transfer to PCU Charges/Coding Procedures Hospitalists Procedures: Other Procedure - See Report (Non billable rounding as pt admitted after midnight. )
[2023-12-20 07:31] LABS: Troponin-I HS 1632 pg/mL (3.0-54.0)
[2023-12-20] MEDS: Pantoprazole Sodium 40 MG Tablet PO (08:06)
[2023-12-20] MEDS: predniSONE 10 MG Tablet PO (08:06)
[2023-12-20] MEDS: Aspirin E.C. 81 MG Tablet PO (08:06)
[2023-12-20] MEDS: TICAGRELOR 90 MG TABLET PO ×2 (08:06→21:05)
[2023-12-20] MEDS: amLODIPine 10 MG Tablet PO (08:06)
[2023-12-20] MEDS: FLUoxetine 10 MG Capsule PO (08:06)
[2023-12-20] MEDS: Metoprolol(XL)Succ 25 MG Tablet PO (08:07)
[2023-12-20 09:00] LABS: Partial Thromboplast Time 44.7 Seconds (24.1-36.2)
--- NOTE | 2023-12-20 12:14 | CON.PCM.CA_ITS ---
Assessment & Plan Assessment/Plan (1) Non-ST elevation [place] (NSTEMI): PLAN: Aspirin, ticagrelor, heparin, Nitropaste, Statins Check echocardiogram. Recommend coronary angiography with possible revascularization. Risks benefits and alternatives explained. She understand these and wishes to proceed. (2) Hypertension: PLAN: Beta-blockers, amlodipine, nitrates (3) Nicotine dependence: PLAN: Counseled to quit. (4) Obesity: PLAN: Lose weight. (5) Abnormality of abdominal aorta: PLAN: 6 x 9 mm flap reported in the abdominal aorta below the level of renal arteries. Report suggests that it is not a dissection flap and recommending follow-up CT in 3 months. HPI Consult Data Date of Consult: 12/20/23 HPI Narrative Reason for Consultation: NSTEMI HPI Narrative: 43-year-old female with past medical history significant for hypertension and nicotine dependence. She presented to the emergency room with complaints of tingling sensation that according to her started in her lower extremities and then also started in bilateral arms, particularly the right arm. Also felt some chest discomfort subsequently. Denies any diaphoresis. No shortness of breath. No nausea or vomiting. She could not identify any precipitating or relieving factors. Per the patient, the symptoms lasted a total of about 1 hour. This completely resolved while she was in the emergency room. She remains asymptomatic overnight. Her troponin levels were elevated, ruling her in for NSTEMI. Denies any previous history of angina. No shortness of breath either at rest or with exertion. Denies orthopnea or PND. No ankle edema. [facility] Medical History (Updated 12/20/23 @ 12:[address] Licha Jolly MD) Tachycardia Anxiety Hypertension Home Medications ?Medication ?Instructions ?Recorded ?Last Taken ?Type amlodipine 10 mg tablet 10 mg PO DAILY 12/19/23 Unknown History esomeprazole magnesium 40 mg 40 mg PO DAILY 12/19/23 Unknown History capsule,delayed release fluoxetine 10 mg capsule 10 mg PO DAILY 12/19/23 Unknown History fluoxetine 20 mg capsule 20 mg PO DAILY 12/19/23 Unknown History metoprolol succinate 25 mg 25 mg PO DAILY 12/19/23 Unknown History tablet,extended release 24 hr prednisone 10 mg tablet 10 mg PO DAILY myalgias 12/19/23 Unknown History Allergy/AdvReac Type Severity Reaction Status Date / Time acetaminophen (From Vicodin) Allergy Intermediate Rash Verified 12/19/23 22:56 hydrocodone (From Vicodin) Allergy Intermediate Rash Verified 12/19/23 22:56 cephalexin (From Keflex) Allergy Hives Verified 12/19/23 22:56 Social History Smoking Status: Current every day smoker tobacco type: cigarettes Physical Exam Narrative Obese. Comfortable. Heart sounds 1 and 2 are normal. No murmurs or rubs are noted. Chest clear to auscultation bilaterally. Abdomen soft. Bowel sounds positive. Alert oriented x 3. No ankle edema noted. Risk Stratification Risk Stratification Applicable: No Objective Data Vital Signs: Vital Signs Temp Pulse Resp BP Pulse Ox O2 Del Method 98.3 F 65 18 122/64 H 95 Room Air 12/20/23 08:00 12/20/23 10:00 12/20/23 10:00 12/20/23 10:00 12/20/23 10:00 12/20/23 10:00 Oxygen Delivery Method Room Air Weight: 248 lb 10.903 oz Body Mass Index (BMI) 38.9 Intake & Output: Intake and Output for Last 24 Hours 12/18/23 12/19/23 12/20/23 23:59 23:59 23:59 Intake Total 82.33 / 82.33 Balance 82.33 / 82.33 Lab / Micro Data 12/19/23 23:32 12/19/23 23:32 Labs: Laboratory Results - last 24 hr 12/19/23 23:32: WBC 10.7, RBC 4.21, Hgb 12.2, Hct 37.0, MCV 87.9, MCH 29.0, MCHC 33.0, RDW Std Deviation 47.5 H, RDW Coeff of Beba 14.8 H, Plt Count 347, MPV 11.3, Immature Gran % (Auto) 0.300, Neut % (Auto) 59.2, Lymph % (Auto) 31.0, [place] % (Auto) 8.0, Eos % (Auto) 0.7, Baso % (Auto) 0.8, Absolute Neuts (auto) 6.4, Absolute Lymphs (auto) 3.32, Nucleated RBC % 0, Sodium 136, Potassium 3.5, Chloride 102, Carbon Dioxide 26.0, Anion Gap 8, BUN 23 H, Creatinine 1.11 H, Estim Creat Clear Calc 86.81, Est GFR (MDRD) Af Amer 69, Est GFR (MDRD) Non-Af 57 L, BUN/Creatinine Ratio 20.7 H, Glucose 97, Calcium 9.2, Troponin I High Sens 294 H*, Serum , Qual NEGATIVE 12/20/23 00:22: PT 14.0, INR 1.1, APTT 24.2 12/20/23 01:35: Troponin I High Sens 773 H* 12/20/23 06:45: Troponin I High Sens 1632 H* 12/20/23 08:00: APTT Cancelled 12/20/23 08:34: APTT 44.7 H Rhythm Strip Rhythm Strip: Sinus Rhythm Cardiology Labs/Tests 12/19/23 23:32: WBC 10.7, RBC 4.21, Hgb 12.2, Hct 37.0, MCV 87.9, MCH 29.0, MCHC 33.0, Plt Count 347, MPV 11.3, Immature Gran % (Auto) 0.300, Neut % (Auto) 59.2, Lymph % (Auto) 31.0, [place] % (Auto) 8.0, Eos % (Auto) 0.7, Baso % (Auto) 0.8, Absolute Neuts (auto) 6.4, Nucleated RBC % 0, Sodium 136, Potassium 3.5, Chloride 102, Carbon Dioxide 26.0, Anion Gap 8, BUN 23 H, Creatinine 1.11 H, Est GFR (MDRD) Af Amer 69, Est GFR (MDRD) Non-Af 57 L, BUN/Creatinine Ratio 20.7 H, Glucose 97, Calcium 9.2 12/20/23 00:22: PT 14.0, INR 1.1, APTT 24.2 12/20/23 08:00: APTT Cancelled 12/20/23 08:34: APTT 44.7 H Rhythm: EKG: First ECG showed sinus rhythm with minimal ST elevation in inferior leads that did not qualify for NSTEMI. No reciprocal changes. A second ECG showed nonspecific ST changes. ECHO: Stress Test: Cardiac Cath: PCI: CT Surgery: Holter monitor: EPS: PPM: CXR: Chest CT Scan: Radiography Diagnostic Testing: Radiology Impression Chest X-Ray 12/19/23 23:42 IMPRESSION: No radiographic evidence of acute cardiopulmonary disease. Electronically Signed: Toni Keene MD at 0:15 EDT Reading Location ID and State: [facility] / [place] Tel , Service support , Chest/Abdomen/Pelvis CTA 12/20/23 00:27 IMPRESSION: 1. No significant abnormalities involving the thoracic aorta, no pulmonary embolism. 2. Small linear flap in the abdominal aorta below the level of the renal arteries measuring 9 x 6 mm. This is not a true dissection flap, and may be chronic, but a follow-up CT in 3 months is recommended to evaluate for stability. 3. Hepatomegaly with fatty infiltration. N.B. : The above Results were Read Back by Toni Keene MD to Yusef Juarez DO, and understanding confirmed on 12/20/2023 01:15:16 (ET). Electronically Signed: Toni Keene MD at 1:16 EDT Reading Location ID and State: [facility] / [place] Tel , Service support , ADDENDUM: 12/20/23 0123 IMPRESSION: 1. No significant abnormalities involving the thoracic aorta, no pulmonary embolism. 2. Small linear flap in the abdominal aorta below the level of the renal arteries measuring 9 x 6 mm. This is not a true dissection flap, and may be chronic, but a follow-up CT in 3 months is recommended to evaluate for stability. 3. Hepatomegaly with fatty infiltration. N.B. : The above Results were Read Back by Toni Keene MD to Yusef Juarez DO, and understanding confirmed on 12/20/2023 01:15:16 (ET). Electronically Signed: Toni Keene MD at 1:16 EDT ,
[2023-12-20] MEDS: Heparin Injection (Vial) 5,000 UNIT/ML VIAL IV (15:30)
[2023-12-20] MEDS: HEPARIN/D5w 25,000 UNITS 25,000 UNITS/250 ML IV.SOLN. 13 UNITS CONT INF (21:05)
[2023-12-20 21:47] LABS: Partial Thromboplast Time 51.6 Seconds (24.1-36.2)
[2023-12-21] VITALS (12 sets, daily range): BP systolic 111–144; BP diastolic 66–81; PULSE 56–78; RESP 18; TEMP 36.1–36.8; O2SAT 96–99; BMI 38.8
[2023-12-21 04:16] LABS: Hematocrit 33.3 % (37-47); Hemoglobin 10.9 g/dL (12.0-15.0); Mean Corp Hgb Conc 32.7 g/dL (32-36); Mean Corpuscular Hgb 28.6 pg (27.0-32.0); Mean Corpuscular Volume 87.4 fL (81-99); Mean Platelet Vol. 10.1 fl (6.2-12.0); Platelet Count 244 K/mm3 (150-450); RBC Distribution Width CV 14.7 % (11.6-14.6); RBC Distribution Width SD 47.6 fl (35.1-43.9); Red Blood Count 3.81 M/mm3 (4.2-5.4); White Blood Count 7.6 K/mm3 (4.4-11.0)
[2023-12-21 04:37] LABS: Partial Thromboplast Time 84.2 Seconds (24.1-36.2)
[2023-12-21 04:42] LABS: ALB/GLOB Ratio 0.8 RATIO (0.9-2.4); AST(SGOT) 41 U/L (15-37); Alanine Aminotransfer ALT/SGPT 56 U/L (13-56); Alkaline Phosphatase 71 U/L (45-117); Anion Gap 6 (5-15); BUN 16 mg/dL (7-18); BUN/Creat Ratio 19.2 RATIO (10-20); Calcium,Total 8.5 mg/dL (8.5-10.1); Chloride 104 mmol/L (98-107); Cholesterol 184 mg/dL (200); Creatinine, Serum 0.83 mg/dL (0.55-1.02); EST Glomerular Filtration Rate 80 mL/min (>60); Est Glom Filt Rate - Afr Amer 97 mL/min (>60); Estimated Creatinine Clearance 115.47 ml/min; Globulin 3.7 g/dL (2.2-4.2); Glucose 97 mg/dL (74-106); High Density Lipoprotein 54 mg/dL; Potassium 3.3 mmol/L (3.5-5.1); Protein, Total 6.7 g/dL (6.4-8.2); Sodium Level 135 mmol/L (136-145); Triglycerides 134 mg/dL; Very Low Density Lipoprotein 27 mg/dL (5-40)
--- NOTE | 2023-12-21 05:55 | EKG12_ITS ---
Test Reason : AM EKG Blood Pressure : / mmHG Vent. Rate : 059 BPM Atrial Rate : 059 BPM P-R Int : 138 ms QRS Dur : 084 ms QT Int : 386 ms P-R-T Axes : 010 039 -09 degrees QTc Int : [address] [facility] Confirmed by Ilan Chawla ([id number]), general expeditor WU RAZO ([id number]) on 12/21/2023 9:44:30 AM Referred By: FEROZ Confirmed By:Ilan Chawla
--- NOTE | 2023-12-21 05:55 | ECHOCS_ITS ---
Reason For Study: NSTEMI Procedure This was a 2D Doppler, Color Flow transthoracic echocardiogram. The study was technically difficult. Exam performed portable in patient room. Left Ventricle Normal size and thickness. Left ventricular systolic function is normal. The left ventricular ejection fraction is 55 %. Normal diastology for age. Right Ventricle Normal right ventricle. Atria The left and right atria are normal. Mitral Valve Mild mitral annular calcification. Trivial mitral valve insufficiency. Tricuspid Valve Trivial tricuspid valve insufficiency. Right ventricular systolic pressure estimated to be 41 mmHg. Aortic Valve Trisinus/trileaflet aortic valve. Pulmonic Valve Mild pulmonic valve insufficiency identified. Great Vessels Normal sized aortic root. Pericardium/Pleural No pericardial effusion. Medication Diluted definity 2ml given slow IV push to enhance endocardial definition. MMode/2D Measurements & Calculations LVIDd: 4.8 cm IVSd: 0.80 cm LVOT diam: 1.9 cm LVIDs: 3.1 cm LVPWd: 0.90 cm RVDd: 3.6 cm FS: 35.8 % LVOT area: 2.7 cm2 asc Aorta Diam: 2.9 cm LAV(MOD-bp): 46.9 ml LVAd ap4: 32.2 cm2 LAV(MOD-bp) Indexed: 21.2 ml/m2 LVLd ap4: 8.2 cm LAV(MOD-sp2): 50.8 ml EDV(MOD-sp4): 104.2 ml LAV(MOD-sp4): 42.6 ml EDV(sp4-el): 107.2 ml LVAs ap4: 18.9 cm2 LVLs ap4: 6.9 cm ESV(MOD-sp4): 45.2 ml ESV(sp4-el): 44.2 ml EF(MOD-sp4): 56.6 % EF(sp4-el): 58.8 % LVAd ap2: 32.0 cm2 SV(MOD-sp4): 59.0 ml SV(MOD-sp2): 58.9 ml LVLd ap2: 8.2 cm EDV(MOD-sp2): 105.6 ml EDV(sp2-el): 105.7 ml LVAs ap2: 19.8 cm2 LVLs ap2: 6.8 cm ESV(MOD-sp2): 46.7 ml ESV(sp2-el): 48.5 ml EF(MOD-sp2): 55.8 % SV(sp4-el): 63.0 ml LA dimension(2D): 3.8 cm LA A4 area: 16.0 cm2 RA A4 area: 14.1 cm2 TAPSE: 2.1 cm Time Measurements MV dec time: 0.18 sec Doppler Measurements & Calculations MV E max lopez: 92.9 cm/sec Lat Peak E' Lopez: 13.9 cm/sec Med Peak E' Lopez: 11.0 cm/sec MV A max lopez: 63.3 cm/sec E/E' lat: 6.7 E/E' med: 8.4 MV E/A: 1.5 Ao V2 max: 140.1 cm/sec LV V1 max: 119.2 cm/sec MV dec slope: 530.7 cm/sec2 Ao max P.9 mmHg LV V1 max P.7 mmHg Ao V2 mean: 95.2 cm/sec LV V1 mean P.2 mmHg Ao mean P.2 mmHg LV V1 mean: 84.7 cm/sec Ao V2 VTI: 31.3 cm LV V1 VTI: 27.6 cm AV (velocity ratio): 0.88 MECHELLE(I,D): 2.4 cm2 MECHELLE(V,D): 2.3 cm2 SV(LVOT): 75.7 ml PA V2 max: 88.1 cm/sec TR max lopez: 258.1 cm/sec PA max PG (full): 1.3 mmHg TR max P.6 mmHg ECHO/Echo Complete W/ Contrast Interpretation Summary The left ventricular ejection fraction is 55 %. Mild mitral annular calcification. Right ventricular systolic pressure estimated to be 41 mmHg. Mild pulmonic valve insufficiency identified. Ordering Physician: Ash Rollins Referring Physician: MD Tunde Galarza Performed By: Alessandra Stratton RDCS
[2023-12-21] MEDS: Potassium Chloride Oral Tablet 20 MEQ 40 MEQ PO (08:07)
[2023-12-21] MEDS: Aspirin E.C. 81 MG Tablet PO (08:10)
[2023-12-21] MEDS: amLODIPine 10 MG Tablet PO (08:10)
[2023-12-21] MEDS: TICAGRELOR 90 MG TABLET PO (08:10)
[2023-12-21] MEDS: Metoprolol(XL)Succ 25 MG Tablet PO (08:10)
[2023-12-21 08:28] LABS: Internal QC Validated? YES +Cl - CLEAR BKGD; Pregnancy, Urine Negative Negative
--- NOTE | 2023-12-21 09:13 | NURSING ---
Gave report to Hermilo SUTHERLAND in [employer] lab[employer]
--- NOTE | 2023-12-21 10:19 | CL.D_ITS ---
Patient Name: LISA CALLEJAS Study Date: 12/21/2023 Performing: Licha Jolly MD Ht: 67 inches 170.18 cm : 1980 Wt: 248.24 lbs 112.6 kg Age: 43 Gender: female BSA: 2.22 PROCEDURE(S) PERFORMED [id number]-([id number])[facility] CLINICAL PROFILE AND INDICATIONS Indications: ACS > 24 hrs Heart Failure: None CAD Presentations: Non-STEMI. Symptom onset Date/Time: Time Not Available CONCLUSIONS 50% Mid LAD 50% Prox OM3 Left dominant system RECOMMENDATIONS Medical therapy Risk factor modification DESCRIPTION OF PROCEDURE The patient arrived to the procedure lab. The risks and benefits of the procedure as well as a full description of our services here and current unavailability of surgical backup were fully explained to the patient and/or their significant other prior to the catheterization. The Timeout was completed, verifying the correct patient and procedure. The patient's procedural site was prepped and draped in the usual fashion. Local anesthetic was given subcutaneously to right radial region with Lidocaine 2%. Using a modified Seldinger technique, arterial access was obtained via the right radial artery, a 6Fr sheath was inserted. Left Coronary Artery selective angiography was performed in multiple views using a 5 Fr. 4.0 [place] catheter. Right Coronary Artery selective angiography was then performed in multiple views using a 5 Fr. 4.0 [place] catheter.The arterial sheath was pulled and a TR Band was applied for hemostasis 12 ml of air CORONARY ANGIOGRAPHY DOMINANCE: Left Dominant LEFT MAIN: Angiographically normal LEFT ANTERIOR DESCENDING ARTERY: LAD: Tubular 50% Mid lesion in LAD CIRCUMFLEX ARTERY: Angiographically normal OM 1: Tubular 50% Ostial lesion in MARG3 OM 2: Tubular 50% Ostial lesion in MARG3 RIGHT CORONARY ARTERY: Angiographically normal COMPLICATIONS No Complications PROCEDURE MEDICATIONS Fentanyl 50 mcg IV Versed 1 mg IV Oxygen: 2 L/min via nasal cannula Heparin given IA 12/21/2023 09:55:52 Verapamil 2.5mg, Ntg 200mcgs, 2000 units of Heparin given IA 12/21/2023 09:55:52 IV Bolus: .9 NaCl 250 ml total 12/21/2023 09:55:16 SUMMARY OF HEMODYNAMIC DATA Time AIR REST ECG 09:46:20 AO 105/72 (88) SA 09:58:22 AO 107/72 (88) 09:58:46 AO 112/72 (91) 10:02:18 10:16:18 Signed By Licha Jolly MD On 12/21/2023 10:18:36 Licha Jolly MD
--- NOTE | 2023-12-21 10:19 | PCM.PN.BLA ---
Progress Note 50% Prox OM3 and 50% Mid LAD disease noted on coronary angiography. Suspect vasospastic phenomenon leading to NSTEMI. Continue Amlodipine, ASA. Start Plavix. Risk factor modification.
--- NOTE | 2023-12-21 10:55 | CASEMGMT ---
RN CM Face to Face with patient for initial transition planning/care coordination assessment. RN CM introduced self and role at [facility]. Patient lying in bed, alert and oriented, at bedside. Patient willing to participate in assessment and is able to answer all questions appropriately. Care providers, pharmacy, and demographics verified. Strata: 1 PCP: Michell Specialists: none Preferred Pharmacy: [facility] Insurance: [place] Prescription Benefit: yes Living Will/HPOA: none LNOK: Living Arrangements: Patient lives with in a single story home with 3 steps and railing to enter. Patient is independent at home. Transportation: self, DME/HHC: No DME in the home. No previous HHC or SNF. Patient wishes to discharge home, denies need for home health at this time. Patient states she has no further needs or concerns at this time. CM to follow for discharge planning needs that may arise. Disposition Plan: Patient to discharge home with family support and follow-up plans in place. Ekaterina HERNANDEZ, RN, CM
[2023-12-21] MEDS: predniSONE 10 MG Tablet PO (11:09)
[2023-12-21] MEDS: FLUoxetine 10 MG Capsule PO (11:09)
[2023-12-21] MEDS: Pantoprazole Sodium 40 MG Tablet PO (11:09)
[2023-12-21] MEDS: FLU VACC 2024-25(6MOS UP)/PF 45 MCG/0.5 ML SYRINGE IM (11:10)
[2023-12-21] MEDS: Clopidogrel Bisulfate 75 MG Tablet PO (11:10)
--- NOTE | 2023-12-21 15:55 | DS.PCM_ITS ---
Providers Date of Admission: 12/20/23 Date of Discharge: 12/21/23 Primary Care Physician: Dr. Tunde Galarza MD Consultations 12/20/23 06:40 Consult: Cardiology Routine Consulting Provider: Jean-Pierre Bowman Reason for Consult: NSTEMI EMERGENT Consult: No MD Notified: Yes Date Notified: 12/20/23 Time Notified: 02:28 Method of Notification: ED Physician Initiated Method of Consult:: In-Person Reason For Visit: NSTEMI Diagnosis Discharge Diagnosis (1) Non-ST elevation ID (NSTEMI): Status: Acute Code(s): I21.4 - Non-ST elevation (NSTEMI) myocardial infarction (2) Hypertension: Status: Chronic Code(s): I10 - Essential (primary) hypertension (3) Nicotine dependence: Status: Acute Code(s): F17.200 - Nicotine dependence, unspecified, uncomplicated (4) Obesity: Status: Acute Code(s): E66.9 - Obesity, unspecified (5) Abnormality of abdominal aorta: Status: Acute Code(s): Q25.40 - Congenital malformation of aorta unspecified Medications at Discharge Home Medications amlodipine 10 mg tablet 10 mg PO DAILY 12/19/23 esomeprazole magnesium 40 mg capsule,delayed release 40 mg PO DAILY 12/19/23 fluoxetine 10 mg capsule 10 mg PO DAILY 12/19/23 fluoxetine 20 mg capsule 20 mg PO DAILY 12/19/23 metoprolol succinate 25 mg tablet,extended release 24 hr 25 mg PO DAILY 12/19/23 prednisone 10 mg tablet 10 mg PO DAILY myalgias 12/19/23 aspirin 81 mg tablet,delayed release 81 mg PO BREAKFAST #30 tabs 12/21/23 atorvastatin 40 mg tablet 40 mg PO QHS #30 tabs 12/21/23 clopidogrel 75 mg tablet 75 mg PO DAILY #30 tabs 12/21/23 Hospital Course Operations None Procedures 2-D Echocardiogram and Cardiac catheterization Summary of Care Provided Minutes Spent on Discharge: 57 Hospital Course: Patient is a 43-year-old female with past medical history as outlined was admitted through the ED on 12/20/2023 with a complaint of chest pain and tingling in her fingers. She had a family history of premature CAD in her father who had an ID at 45. She came in with chest pain and tingling in her fingers. Symptoms started about 3 hours prior to admission. The chest pain was present at rest and was substernal, pressure-like with no aggravating or relieving factors. Initial troponin was 294 and trended upwards to 773, consistent with non-STEMI. CT of the abdomen and pelvis as well as chest showed no evidence of PE but showed a small linear flap in the abdominal aorta at the level of the renal arteries measuring 9 mm x 6 mm which was likely chronic and recommendation was for follow-up CT in 3 months to evaluate for stability. She was admitted to be managed for non-STEMI. Cardiology was consulted and 2D echo was ordered. She was started on aspirin. And also started on Brilinta and high intensity statin as well as heparin drip. 2D echo showed EF of 55% with normal diastolic for age and normal ventricular systolic function with RVSP of 41 mmHg. She had cardiac cath which showed mild CAD with 50% lesion in the LAD. Per cardiology, she was continued on amlodipine and start Plavix as well as continue her aspirin. Cardiology suspected vasospastic phenomenon leading to non-STEMI. She was counseled to quit smoking. She was discharged home on 02/20/2024 and is follow-up with her primary care doctor within 1 to 2 weeks. Patient was seen and examined prior to discharge. She had no complaints and had an uneventful night. Review of systems otherwise negative. Labs and vitals reviewed. Home medication reviewed and reconciled. Physical Exam Const alert, oriented x3 and no apparent distress Constitutional Narrative: Patient is obese. General Appearance: cooperative and comfortable Orientation / Consciousness: awake Exam Limitations: no limitations HEENT normocephalic, head/scalp atraumatic, hearing grossly normal bilaterally and moist oral mucous membranes Mouth: oral and palatal mucosa normal Eyes PERRL and EOMs intact bilaterally Neck no lymphadenopathy and supple Resp normal respiratory effort, no retractions, no use of accessory muscles and clear to auscultation bilaterally Cardio regular rate, regular rhythm, S1 normal heart sound and S2 normal heart sound GI normal to inspection, nondistended, normoactive bowel sounds, soft to palpation, non-tender and non-distended GI Narrative: Obese. Extremity normal to inspection, full ROM and no clubbing, cyanosis or edema Skin no rashes or lesions noted Neuro oriented x3, CN's II-XII intact bilaterally, moves all extremities and no focal motor deficits Sensorium / Orientation: awake, alert, oriented to person, oriented to place and oriented to time Speech: speech normal Motor Exam: strength 5/5 throughout Psych affect normal Weight / BMI Weight Weight: 248 lb 3.848 oz Body Mass Index (BMI) 38.8 ABG / Lab / Microbiology Data 12/21/23 04:05 12/21/23 04:05 Laboratory: Laboratory Results - last 24 hr 12/20/23 21:30: APTT 51.6 H 12/21/23 04:05: WBC 7.6, RBC 3.81 L, Hgb 10.9 L, Hct 33.3 L, MCV 87.4, MCH 28.6, MCHC 32.7, RDW Std Deviation 47.6 H, RDW Coeff of Beba 14.7 H, Plt Count 244, MPV 10.1, APTT 84.2 H, Sodium 135 L, Potassium 3.3 L, Chloride 104, Carbon Dioxide 25.0, Anion Gap 6, BUN 16, Creatinine 0.83, Estim Creat Clear Calc 115.47, Est GFR (MDRD) Af Amer 97, Est GFR (MDRD) Non-Af 80, BUN/Creatinine Ratio 19.2, Glucose 97, Calcium 8.5, Total Bilirubin 0.40, AST 41 H, ALT 56, Alkaline Phosphatase 71, Total Protein 6.7, Albumin 3.0 L, Globulin 3.7, Albumin/Globulin Ratio 0.8 L, Triglycerides 134, Cholesterol 184, LDL Cholesterol 103, VLDL Cholesterol 27, HDL Cholesterol 54, TSH 2.010 12/21/23 08:10: Urine Test Negative Radiography Diagnostic Testing: Radiology Impression Echocardiogram 12/21/23 05:55 Interpretation Summary The left ventricular ejection fraction is 55 %. Mild mitral annular calcification. Right ventricular systolic pressure estimated to be 41 mmHg. Mild pulmonic valve insufficiency identified. Ordering Physician: Ash Rollins Referring Physician: MD Michell Tunde Performed By: Alessandra Stratton RDCS D/C Instructions Discharge Diet: Low fat / Low cholesterol Discharge Activity: Return to Normal Activity Weight Bearing Status: Weight bearing as tolerated Call your doctor if you observe: Fever of 101 or Higher, Shortness of breath, Dizziness, Swelling in the ankles and Chest pain Meaningful Use Info Meaningful Use Meaningful Use Diagnoses (Choose all that apply): AMI AMI/Post PCI/Angioplasty Aspirin given w/in 24hrs of arrival?: Yes ASA at discharge?: Yes Antiplatelet Therapy at Discharge:: Yes Statins at discharge?: Yes Evan/ARB at discharge?: No Reason Evan/ARB not ordered:: Not indicated Beta Robbin at discharge?: Yes Done w/ Acute ID measure.: Yes Documented LVEF (%): 55 Ischemic Stroke Statin Dosing Therapy Reference: STATIN DOSE THERAPY REFERENCE: * Patients > 75 years receive moderate or high dose statin therapy. * Patients 75 years or YOUNGER should receive HIGH intensity statin dose unless contraindicated. You will be required to document reason for non-treatment if statin daily dose does not meet guidelines. HIGH DOSE STATIN THERAPY DAILY Atorvastatin > than or = to 40 mg Rosuvastatin > than or = to 20 mg Amlodipine + Atorvastatin > than or = to 2.5/40 mg Ezetimibe + Simvastatin 10/80 mg Simvastatin 80mg Discharge Plan Admission Admit Date/Time: 12/20/23 02:27 Primary Reason for Your Visit: nonstemi Attending Provider: Brinda Sparks Primary Care Provider: Tunde Galarza Consulting Providers: Ash Rollins; Maribeth Muñoz; Licha Jolly; Diaz Ledbetter; Ross Rae; Rocky Morejon; Mango Maradiaga; Ilan Chawla; Kacey Vargas; [employer]; Jossue Monahan L[employer] PEEL OPERATOR; Sol Bhandari NP; Marilyn Nelson; Rosendo Zhong; Brinda Sparks; Tunde Pastrana Instructions Patient Instructions: Heart Attack Dc, Exercising After a Heart Attack, Heart Attack Meds Discharge Orders/Prescriptions Prescriptions: New aspirin 81 mg Tablet,Delayed Release (Dr/Ec) 81 mg PO BREAKFAST Qty: 30 1RF atorvastatin 40 mg Tablet 40 mg PO QHS Qty: 30 2RF clopidogrel 75 mg Tablet 75 mg PO DAILY Qty: 30 2RF Continued prednisone 10 mg tablet 10 mg PO DAILY amlodipine 10 mg tablet 10 mg PO DAILY esomeprazole magnesium 40 mg capsule,delayed release(DR/EC) 40 mg PO DAILY fluoxetine 10 mg capsule 10 mg PO DAILY metoprolol succinate 25 mg tablet extended release 24 hr 25 mg PO DAILY fluoxetine 20 mg capsule 20 mg PO DAILY Referrals / Follow Up: Tunde Galarza MD [Primary Care Provider] - Within 2 Weeks Disposition Disposition (needs filled in before D/C Order can be placed): Home, Self Care Charges/Coding Visit Charges Inpatient E&M: 21981 Disch Hosp >30min
== END 2023-12-21 16:57 | disposition home or self-care (01) | DRG 282 ==
LOC: ED 12-20 00:41 → ICU 12-20 04:16 → PCU 12-20 11:21
PROVIDERS: Admitting Provider Internal Medicine; Emergency Provider Emergency Medicine; PCP Family Medicine; Visit Provider Student in an Organized Health Care Education/Training Program
DX: I21.4 Non-ST elevation (NSTEMI) myocardial infarction (principal); E66.9 Obesity, unspecified; I73.9 Peripheral vascular disease, unspecified; I10 Essential (primary) hypertension; F32.A Depression, unspecified; F17.210 Nicotine dependence, cigarettes, uncomplicated; K21.9 Gastro-esophageal reflux disease without esophagitis; M77.9 Enthesopathy, unspecified; F41.9 Anxiety disorder, unspecified; Z68.39 Body mass index [BMI] 39.0-39.9, adult; Z79.899 Other long term (current) drug therapy
CPT/HCPCS: 36415; 71045; 71275; 74174; 80048; 80053; 80061; 81025; 84443; 84484; 84703; 85025; 85027; 85610; 85730; 90656; 93005; 93306; 93454; 94762; 99152; 99153; 99285; J7050; Q9957; Q9967; A4216; C1769; C1894; C8929

== ENCOUNTER → 2023-12-31 | Outpatient (CLI) | payer BC, SELFPAY ==
--- NOTE | 2023-12-31 10:03 | PCM.CR.HP2 ---
CR - History & Physical General Arrival date:: 12/31/23 Arrival time:: 10:04 Date of Referral:: 12/23/23 Date of CR Evaluation:: 12/31/23 Referring Physician: Dr. Jolly Primary Diagnosis: MO NonSTEMI <12 months History of Present Cardiac Event Onset Date Acute Myocardial Infarction within 12 months:: Yes (12/19/23) Medications Ambulatory Orders ?Medication ?Instructions ?Recorded amlodipine 10 mg tablet 10 mg PO DAILY blood pressure 12/19/23 esomeprazole magnesium 40 mg 40 mg PO DAILY reflux 12/19/23 capsule,delayed release fluoxetine 10 mg capsule 10 mg PO DAILY mental health 12/19/23 fluoxetine 20 mg capsule 20 mg PO DAILY mental health 12/19/23 metoprolol succinate 25 mg 25 mg PO DAILY blood pressure 12/19/23 tablet,extended release 24 hr prednisone 10 mg tablet 10 mg PO DAILY myalgias 12/19/23 aspirin 81 mg tablet,delayed 81 mg PO BREAKFAST #30 tabs 12/21/23 release atorvastatin 40 mg tablet 40 mg PO QHS #30 tabs 12/21/23 clopidogrel 75 mg tablet 75 mg PO DAILY #30 tabs 12/21/23 Allergies Allergies acetaminophen (From Vicodin) Allergy (Intermediate, Verified 12/19/23 22:56) Rash hydrocodone (From Vicodin) Allergy (Intermediate, Verified 12/19/23 22:56) Rash cephalexin (From Keflex) Allergy (Verified 12/19/23 22:56) Hives Sleep Disorder Evaluation Hx of Sleep Apnea: No Do you snore loudly (louder than talking or can be heard through closed doors)?: No Do you often feel tired/ fatigued/ sleepy during daytime?: No Has anyone observed you stop breathing during sleep?: No History of Hypertension (for STOP score): No STOP Results: Negative Advanced Directives Advanced Directives Power of Helper Maintenance Cleaning: No Living Will: No Advance Directives Information Provided: No Advance Directives on File: No DNR Order?:: No Past Medical History Covid-19 Screening Physicial Symptoms Other Clinical Concerns Exposure Risk Pertinent Comorbidities Has a serious heart condition:: Yes Past Medical Illness Past Medical History (Updated 12/29/23 @ 00:02 by Background Daemon) Abnormality of abdominal aorta Q25.40 Obesity E66.9 Nicotine dependence F17.200 Family history of cardiac disorder in father Z82.49 Tobacco dependence F17.200 History of hypertension Z86.79 Paresthesia R20.2 Chest pain R07.9 Non-ST elevation MO (NSTEMI) I21.4 Tachycardia R00.0 Anxiety F41.9 Hypertension I10 Social History Smoking History Smoking Status: Former smoker Years Smokin Packs Smoked per Day: 1 (stopped 2 weeks ago) Occupation Occupation (List type of work in comments):: Employed Hours worked per day:: 5 Hobbies, Recreation, Social Activities Hobbies: None Social Environment Status Marital Status: Current Living Arrangements Living Environment:: Family Children How many children do you have?: 2 Safety Do you feel safe in your surroundings?: Yes Assistance Do you need any assistance at home?: no Review of Systems Review of Systems Hints Review of Present Symptoms: Reports Shortness of Breath with Exertion, Fatigue, Heart Arrhythmia/Irregularities, Appetite - Normal, Appetite - Special Diet and Sleep - Normal; Denies Shortness of Breath at Rest, PVD, Operative Discomfort, Angina, Wound Healing, Dizziness/Lightheadedness or Sexual Changes Pain Is Patient Pain Free?: Yes Risk Factor Assessment Chief Complaint Chief Complaint: MO-NonSTEMI < 12 Months Vital Signs Pulse Ox: 96 Blood Pressure: 128/72 Pulse Pulse Rate: 61 Pulse Rhythm: Regular Hypertension How long have you been treated?: 3 months Blood Pressure Sitting - Right Arm: 128/72 Stress Stress: Work-related and Home/Family Obesity Height: 5 ft 7 in Weight:: 248 lb Weight in Pounds: 248.0 lbs Body Mass Index (BMI): 38.8 Nutritional Referral for Obesity: No (declines) Physical Inactivity Physical Inactivity: Reg Exercise 30 min/day (walking) Risk Stratification Risk Guidelines: Moderate Risk: Risk Factor for Dyslipidemia, Risk Factor for Diabetes, Risk Factor for Hypertension and Risk Factor for Sedentary Lifestyle and Highest Risk: Risk Factor for Smoking, Risk Factor for Obesity and Risk Factor for Depression For Smoking Smoking Risk Guidelines For Dyslipidemia Dyslipidemia Risk Guidelines For Diabetes Mellitus Diabetes Risk Guidelines For Obesity/Overweight Obesity/Overweight Risk Guidelines For Hypertension Hypertension Risk Guidelines For Sedentary Lifestyle Sedentary Lifestyle Risk Guidelines For Depression Depression Risk Guidelines Motivation Motivation to Participate On a scale of 1 to 10, how prepared are you to commit to attending program?: 10 What do you see as barriers to successfully being able to complete the program?: nothing What do you see as the benefits of succesfully completing the program? In other words, what do you hope to get out of participating in the program?: healthier Are there issues you are dealing with that will interfere with completing the program?: no Do you have a spouse or signficant other, family or friends who will help support you to complete the program?: yes
--- NOTE | 2023-12-31 10:09 | CR.ITP_ITS ---
Diagnosis General Information Admitting Diagnosis: DE - NonSTEMI < 12 months Personal Learning Style:: Audio/Visual Barriers to Learning: No Barriers Stage of change r/t lifestyle modifications:: Contemplation Gave educational material for:: Treating Heart Disease, How The Heart Works, What it means to have Heart Disease, How Coronary Artery Disease is Diagnosed, Heart Procedures, What Heart Medications Do, Risk Factors & Modifications, Living an Active Life, Nutrition, Emotions & Heart Disease, Stress Management & Relaxation and Sleep Disorders & Heart Disease Education/Goals Cardiac Rehabilitation Goals Personal Goals: Initial Assessment: Quit smoking (participate in smoking cessation, Improve energy level, Participate in home exercise program, Get back to work, or to resume activities faster, Improve knowledge of cardiac disease, Improve muscle strength and endurance, Improve diet and eating habits (eat healthier) and Control risk factors (learn risk factor modification) Scale for measuring improvement of personal goals Diagnosis & Disease Process Outcomes/Goals: Pt IDs own risk factors & lifestyle modifications by Session 10, Verbalizes symptoms of angina & response by session 3., Pt independently manages and Other Additional Outcomes/Goals: Plan/Interventions: Assist Pt to ID & engage in lifestyle modification to reduce CVD risk, Instruct on individual risk factors, Review symptoms of angina & emergency actions, Review secondary diagnosis & identify educational needs. and Other see comment 30 day Reassessments:: Not Met 30 day Reassessments:: Not Met 30 day Reassessments:: Not Met 30 day Reassessments:: Not Met Final Reassessments:: Not Met Safety Referral to Physical Therapy: No Referral to [facility] Case Management: No Fall Risk Assessed:: Yes Assistive Devices:: None Exercise - Initial Assessment Visit Date of Eval: 12/31/23 (initial eval) Mets: Pre-: >3 METS for 30 minutes by discharge, >5 METS for 30 minutes by discharge, >7 METS for 30 minutes by discharge and Unable to meet goal due to: (see comment below) Physician Prescribed Exercise Modalities: Treadmill, Rower, Nicho Torres AD-7, SciFit Stepper, SciFit Pro- II Ergometer and SciFit Lateral [place] Frequency: 3x/week for 12 weeks [36 sessions] Intensity: 60-80% of age predicted maximum heart rate reserve Duration: 30 - 45 minutes Current METSs:: 3 Target Heart Rate:: 116-134 Resting Blood Pressure: 128/72 EKG Type: NSR Outcomes & Goals Goals:: Verbalizes understanding of THR, RPE & goal METS by session 6, Documents in home exercise log/reports 30 min aerobic 5 day/wk by DC, Demonstrates accurate pulse taking by DC and Other additional outcome/goals: see below Intervention & Plan Exercise Program Goals: Instruct on personal THR & RPE, Instruct on MET level & personal MET goal, Show patient to take own pulse /validate performance until accurate, Instruct on home exercise and Other additional plan/int Physical Activity Home Exercise Physical Activity - Home Exercise: Safe Exercise, Warm-up, Self-monitoring, Cool-Down, Home Exercise > 30 min Daily and Sitting Time <3 hours/daily Outcomes & Goals Outcomes/Goals: Demonstrates correct Warm-up/exercise Cool-Down (S3) if = 2.5 METs, Verbalizes symptoms of exercise intolerance by Session 3 (S3), Demonstrate safe equipment use (S3) & follows exercise prescrition (6) and Other: See below Intervention & Plan Plan/Intervention: Instruct warm-up & cool-down if exercising at > 2 METs, Instruct on symptoms of exercise intolerance & actions to take, Instruct & monitor on saf, Assess intial functional capacity & safety risk and Other See below Nutrition - Initial Assessment Program Goals Nutrition Program Goals Patient has diagnosis of Hyperlipidemia (ICD E78)?: No Visit Date of Eval: 12/31/23 (initial eval) Cholesterol/Lipids (Other Core Measures) Determine presence & major risk factors that modify LDL goal: Cigarette smoking, Hypertension or hypertensive medication, Low HDL cholesterol <40 mg/dL*, Family history of premature CHD in Male < 55 years: female <65 yearsFa and Age men > 45 years; women >/= 55 years Outcomes/Goals: Pt IDs own risk factors & lifestyle modifications by Session 10, Verbalizes symptoms of angina & response by session 3., Pt independently manages and Other Additional Outcomes/Goals: Intervention/Plan: Advocate for lipid panel cholesterol medication if applicable, Instruct on personal lipid levels & lipid goals/NCEP guidelines, Instruct on cholesterol and Other additional plan/int Diabetes (Other Core Measures) Diabetes Type: Not Applicable Weight Mgt (Other Care) Height: 5 ft 7 in Weight:: 248 lb BMI: 38.8 Diagnosis Overweight/Obesity BMI> 30% ICD-10 E66: Yes Diagnosis High BMI/Morbid Obesity BMI> 35% ICD-10 Z68: Yes Outcomes/Goals: Pt sets, maintains & shows weight loss goal & trend during rehab and Other additional outcomes/goals Intervention/Plan: Instruct on ideal BMI & set weight loss goal w/patient, Assist pt to ID & incorporate diet changes for weight loss by S9, Refer to Structured Weight Loss program as appropriate, Encourage goal of using 250- 300dcal per session for weight loss and Other additional plan/interventions Healthy Eating Habits Will attend diet classes:: Yes Outcomes/Goals:: Consume diet rich in vegs,fruits,whole grain/high fiber,fish,lean meat, Limit sat/trans fats,cholesterol & added salts & sugars and Other additional outcome/goals: Intervention/Plan:: Assess current eating habits and Other Additional plan/interventions Education Gave educational materials for:: Signs & symptoms of hypoglycemia, Signs & symptoms of hyperglycemia, Relate diabetes to coronary artery disease and Healthy eating Core - Initial Assessment Visit Date of Eval: 12/31/23 (initial eval ) Medication Compliance Preventative Medication(s):: Aspirin, Clopidogrel/P2Y12 inhibit, Statin/lipid and Beta sloan H/O mental health issues: depression, anxiety, or addiction?: Yes Doesn?t believe in the benefits of treatment?: No Believes medications are unnecessary or harmful?: No Has a concern about medication side effects?: No Expresses concern over the cost of medications?: No Outcomes/Goals: Verbalizes medications,desired effect & common side effects @ DC, Pt self-reports following medication regimen, Keeps card in wallet w/medications listed by DC and Other additional outcome/goals: Interventions/plans: Instruct on medication effects & side effects, Review medication list w/patient every two weeks, Instruct importance of taking meds as ordered & assist problem solving and Other additional Tobacco Use Tobacco Use: Cigarettes How long ago did you quit using tobacco products?: Less than 6 months ago How many cigarettes do you smoke per day?: 20 Years Smokin (stopped 2 weeks ago) Do you use smokeless tobacco?: No Outcomes/Goals: Smoking cessation achieved or maintained by discharge, Identify aids/strategies for achieving smoking cessation by session 6 and Other additional outcome/goals Interventions/plan: Instruct on effects of smoking & provide smoking cessation resource, Assist pt to set quit date & provide encouragement, Assist pt to develop strategies to achieve/maintain quit date, Assist pt w/nicotine replacement & medication for cessation success and Other additional plan/interventions Hypertension Hypertension Diagnosis:: Hypertension ICD-10 I10 Resting Blood Pressure:: 128/72 [place] [employer] Hypertension Guidelines Outcomes/Goals: Able to verbalize/achieve optimal blood pressure <130/80, Incorporates diet changes & exercise for blood pressure control by DC and Other additional outcomes/goals Interventions/plan: Instruct on optimal blood pressure, hypertension & medications, Instruct on effects of sodium, alcohol, stress, exercise &hypertension and Other additional plan/interventions Tobacco Cessation Referral Smoking Cessation Referral:: Yes Individual Education/Counseling:: No Education Schedule Given:: Yes Psychosocial - Initial Assess VIsit Date of Eval: 12/31/23 (initial eval) History of Emotional Disorders: Anxious and Depression Self-reported stressors: Family and Other (work) Self-reported stressors Other/Comments:: Pt states she is on meds for anxiety and depression and is fine at this time. Target Goals Target Goals Psychosocial Test Tool Used:: [employer] QOL Cardiac and PHQ-9 Questionnaire phq-9 Severity Referral to Behavioral Health PS - Interventions: Yes: Attend Stress Management Classes Outcomes/Goals: See list Psychosocial Outcomes/Goals:: ID's personal stressors & 2 strategies to manage stress by discharge and Other Additional outcome/goals: Intervention/Plan: See List Interventions/Plan:: Assess stressors,coping strategies & signs of derpression on admission, Instruct/assist pt to develop coping & personal stress Mgt strategies, Refer to Behavioral Health if appropriate, Refer to Physician if appropriate, Instruct patient to recognize signs & symptoms of depression, Instruct patient to recog and Other additional plan/intervention Patient Health Questionnaire PHQ-9 Screening Initial Assessment: 1. Little interest or pleasure in doing things: Several days 2. Feeling down, depressed, or hopeless: Not at all 3. Trouble falling or staying asleep, or sleeping too much: Several days 4. Feeling tired or having little energy: More than half the days 5. Poor appetite or overeating: Not at all 6. Feeling bad about yourself -- or that you are a failure or have let yourself or your family down: Not at all 7. Trouble concentrating on things, such as reading the newspaper or watching television: Not at all 8. Moving or speaking so slowly that other people could have noticed. Or the opposite - being so fidgety or restless that you have been moving around a lot more than usual: Not at all 9. Thoughts that you would be better off , or of hurting yourself in some way: Not at all How difficult have these problems made it for you to do your work, take care of things at home, or get along with other people?: Somewhat difficult Total Score: 4 HASMUKH-Q SV Test Statements CAD is a disease of the arteries in the heart: False Examples of risk factors for heart disease: True Angina is chest pain or discomfort: True The benefits of resistance training include: True Eating more meat and dairy products: False Anti-platelet medications such as aspirin are important: True The only effective way to manage stress: False An exercise warm-up slowly increases heart rate: True Prepared, processed foods usually have high sodium: True Depression is common after a heart attack: I Don't Know The statin medications lower cholesterol: True To control blood pressure, lower the amount of sodium: True If someone gets chest discomfort during walking: False Transfats are partially hydrogenated vegetable oils: True Sleep apnea that is not treated increases the risk: False To control cholesterol, one should become a vegetarian: False Someone knows if he/she is exercising at the right level: True Diabetes cannot be prevented with exercise & health eating: True Stress is a large risk for heart attack: True A diet that can help lower blood pressure is rich in: True Total Score Total Correct Responses: 18 Self-Efficacy 6-Item Scale Initial Assessment: We would like to know how confident you are in doing certain activities. Please select your confidence level for: Fatigue Select Number: 6 Physical Discomfort or Pain Select Number: 5 Emotional Distress Select Number: 5 Other Symptoms or Health Problems Select Number: 6 Different Tasks and Activities Select Number: 6 Medication Select Number: 6 Total Score:: 5 Nutrition Survey Nutrition Survey Instructions Scoring Instructions Nutrition Survey Initial: Have you lost >10 lbs over the past 2 months without trying?: No Are you following a special diet at home for diabetes, low fat, or low salt?: Yes Are you interested in meeting with a dietitian for help understanding your diet?: No Do you eat less than 3 meals a day?: No Do you eat fatty meats (ramon, sausage, ribs, etc), fried foods, desserts, large amounts of salad dressings, margarine, butter, or cheese most days?: No Do you have food allergies? [Enter types in comment field]: Yes Do you eat in restaurants more than 3 times a week?: No Do you season food with salt, seasoning salt, or garlic salt?: No Do you used canned, boxed, frozen meals, or soups, seasoning packets?: Yes Total Score:: 3 Exercise - 30-day Assessment Physician Prescribed Exercise Modalities: Treadmill, Rower, [employer] AD-7, SciFit Stepper, SciFit Pro- II Ergometer and SciFit Lateral Information Systems Director Exercise - 60-day Assessment Physician Prescribed Exercise Modalities: Treadmill, Rower, [employer] AD-7, SciFit Stepper, SciFit Pro- II Ergometer and SciFit Lateral Information Systems Director Exercise - 90-day Assessment Physician Prescribed Exercise Modalities: Treadmill, Rower, [employer] AD-7, SciFit Stepper, SciFit Pro- II Ergometer and SciFit Lateral [place] Exercise - Final/Discharge Physician Prescribed Exercise Modalities: Treadmill, Rower, [employer] AD-7, SciFit Stepper, SciFit Pro- II Ergometer and SciFit Lateral Information Systems Director Frequency: 3x/week for 12 weeks [36 sessions] Intensity: 60-80% of age predicted maximum heart rate reserve Current METSs:: 3 Target Heart Rate:: 116-134 Nutrition - 30-Day Assessment Weight Mgt (Other Care) Height: 5 ft 7 in Weight:: 248 lb BMI: 38.8 Nutrition - 60-Day Assessment Weight Mgt (Other Care) Height: 5 ft 7 in Weight:: 248 lb BMI: 38.8 Core - 30-Day Assessment Tobacco Use Years Smokin (stopped 2 weeks ago) Core - Final Assessment Hypertension Resting Blood Pressure:: 128/72 [place] [employer] Hypertension Guidelines Core - 60-Day Assessment Hypertension Resting Blood Pressure:: 128/72 [place] [employer] Hypertension Guidelines Psychosocial - 30-Day Assess Target Goals Target Goals Referral to Behavioral Health PS - Interventions: Yes: Attend Stress Management Classes Psychosocial - 60-Day Assess Target Goals Target Goals Referral to Behavioral Health PS - Interventions: Yes: Attend Stress Management Classes Psychosocial - 90-Day Assess Target Goals Target Goals Referral to Behavioral Health PS - Interventions: Yes: Attend Stress Management Classes Psychosocial - Final Assessmen Target Goals Target Goals Referral to Behavioral Health PS - Interventions: Yes: Attend Stress Management Classes Nutrition - 90-Day Assessment Weight Mgt (Other Care) Height: 5 ft 7 in Weight:: 248 lb BMI: 38.8 Nutrition - Final Assessment Program Goals Patient has diagnosis of Hyperlipidemia (ICD E78)?: No Weight Mgt (Other Care) Height: 5 ft 7 in Weight:: 248 lb BMI: 38.8
[2023-12-31 10:22] VITALS: PULSE 61; O2SAT 96
[2023-12-31 10:25] VITALS: BP 128/72
[2023-12-31 10:54] VITALS: BP 128/72; BMI 38.8
[2023-12-31 10:55] VITALS: BMI 38.8
== END | disposition home or self-care (01) ==
PROVIDERS: PCP Family Medicine; Referring Provider Internal Medicine Cardiovascular Disease; Visit Provider Internal Medicine Cardiovascular Disease
DX: I25.2 Old myocardial infarction (principal); I10 Essential (primary) hypertension; F17.200 Nicotine dependence, unspecified, uncomplicated

== ENCOUNTER 2024-01-06 13:24 | Outpatient (RCR) | payer BC, SELFPAY ==
[2023-12-31 10:54] VITALS: BMI 38.8
== END 2024-01-07 23:59 ==
LOC: CR 13:24
PROVIDERS: PCP Family Medicine; Referring Provider Internal Medicine Cardiovascular Disease; Visit Provider Internal Medicine Cardiovascular Disease
DX: I21.4 Non-ST elevation (NSTEMI) myocardial infarction (principal); I10 Essential (primary) hypertension; F17.200 Nicotine dependence, unspecified, uncomplicated
CPT/HCPCS: 93798

== ENCOUNTER 2024-01-13 13:00 | Outpatient (RCR) | payer BC, SELFPAY ==
[2023-12-31 10:54] VITALS: BMI 38.8
--- NOTE | 2024-01-29 08:14 | CR.ITP_ITS ---
Exercise - Initial Assessment Visit Session #:: 2 Comments:: Pt has only attended 2 sessions since starting 01/06/24 Physician Prescribed Exercise Modalities: Treadmill, Schwinn Airdyne AD-7 and SciFit Stepper Nutrition - Initial Assessment Weight Mgt (Other Care) Height: 5 ft 7 in Weight:: 245 lb 8 oz BMI: 38.4 Core - Initial Assessment Tobacco Use Years Smokin (Pt stopped in mid December) Psychosocial - Initial Assess Target Goals Target Goals Referral to Behavioral Health PS - Interventions: Yes: Attend Stress Management Classes Patient Health Questionnaire PHQ-9 Screening 30-Day Re-eval Assessment: 1. Little interest or pleasure in doing things: Several days 2. Feeling down, depressed, or hopeless: Not at all 3. Trouble falling or staying asleep, or sleeping too much: More than half the days 4. Feeling tired or having little energy: Not at all 5. Poor appetite or overeating: Not at all 6. Feeling bad about yourself -- or that you are a failure or have let yourself or your family down: Not at all 7. Trouble concentrating on things, such as reading the newspaper or watching television: Not at all 8. Moving or speaking so slowly that other people could have noticed. Or the opposite - being so fidgety or restless that you have been moving around a lot more than usual: Not at all 9. Thoughts that you would be better off , or of hurting yourself in some way: Not at all How difficult have these problems made it for you to do your work, take care of things at home, or get along with other people?: Somewhat difficult Total Score: 3 Self-Efficacy 6-Item Scale 30-Day Re-eval Assessment: We would like to know how confident you are in doing certain activities. Please select your confidence level for: Fatigue Select Number: 6 Physical Discomfort or Pain Select Number: 5 Emotional Distress Select Number: 5 Other Symptoms or Health Problems Select Number: 6 Different Tasks and Activities Select Number: 6 Medication Select Number: 6 Total Score:: 5 Nutrition Survey Nutrition Survey Instructions Scoring Instructions Exercise - 30-day Assessment Visit Date of Eval: 01/29/24 Session #:: 2 Comments:: Pt has only attended 2 sessions since starting 01/06/24 Physician Prescribed Exercise Modalities: Treadmill, Schwinn Airdyne AD-7 and SciFit Stepper Frequency: 3x/week for 12 weeks [36 sessions] Intensity: 60-80% of age predicted maximum heart rate reserve Duration: 30 - 45 minutes Current METSs:: 4.1 Target Heart Rate:: 116-134 Current RPE:: 11-12 Maximum Excercise HR:: 112 Resting Blood Pressure: 138/80 Maximum Exercise Blood Pressure: 138/86 EKG Type: NSR to ST with rare to occas PAC's Outcomes & Goals Goals:: Verbalizes understanding of THR, RPE & goal METS by session 6, Documents in home exercise log/reports 30 min aerobic 5 day/wk by DC, Demonstrates accurate pulse taking by DC and Other additional outcome/goals: see below Intervention & Plan Exercise Program Goals: Instruct on personal THR & RPE, Instruct on MET level & personal MET goal, Show patient to take own pulse /validate performance until accurate, Instruct on home exercise and Other additional plan/int 30-day Reassessments 30 day Reassessments:: Progressing Reassessment Notes & Comments:: RPE explained to pt. Pt demonstrates understanding Physical Activity Home Exercise Physical Activity - Home Exercise: Safe Exercise, Warm-up, Self-monitoring, Cool-Down, Home Exercise > 30 min Daily and Sitting Time <3 hours/daily Outcomes & Goals Outcomes/Goals: Demonstrates correct Warm-up/exercise Cool-Down (S3) if = 2.5 METs, Verbalizes symptoms of exercise intolerance by Session 3 (S3), Demonstrate safe equipment use (S3) & follows exercise prescrition (6) and Other: See below Intervention & Plan Plan/Intervention: Instruct warm-up & cool-down if exercising at > 2 METs, Instruct on symptoms of exercise intolerance & actions to take, Instruct & monitor on saf, Assess intial functional capacity & safety risk and Other See below 30-day Reassessments 30 day Reassessments:: Progressing Reassessment Notes & Comments:: Proper warm up demonstrates and explained to pt. Pt is able to return demonstration. Exercise - 60-day Assessment Physician Prescribed Exercise Modalities: Treadmill, Schwinn Airdyne AD-7 and SciFit Stepper Exercise - 90-day Assessment Physician Prescribed Exercise Modalities: Treadmill, Schwinn Airdyne AD-7 and SciFit Stepper Exercise - Final/Discharge Physician Prescribed Exercise Modalities: Treadmill, Schwinn Airdyne AD-7 and SciFit Stepper Nutrition - 30-Day Assessment Program Goals Nutrition Program Goals Patient has diagnosis of Hyperlipidemia (ICD E78)?: No Visit Date of Eval: 01/29/24 Session #:: 2 Cholesterol/Lipids (Other Core Measures) Determine presence & major risk factors that modify LDL goal: Cigarette smoking, Hypertension or hypertensive medication, Low HDL cholesterol <40 mg/dL*, Family history of premature CHD in Male < 55 years: female <65 yearsFa and Age men > 45 years; women >/= 55 years Outcomes/Goals: Pt IDs own risk factors & lifestyle modifications by Session 10, Verbalizes symptoms of angina & response by session 3., Pt independently manages and Other Additional Outcomes/Goals: Intervention/Plan: Advocate for lipid panel cholesterol medication if applicable, Instruct on personal lipid levels & lipid goals/NCEP guidelines, Instruct on cholesterol and Other additional plan/int 30-day Reassessments:: Progressing Reassessment Notes & Comments:: Risk factors reviewed. Diabetes (Other Core Measures) Diabetes Type: Not Applicable Weight Mgt (Other Care) Height: 5 ft 7 in Weight:: 245 lb 8 oz BMI: 38.4 Diagnosis Overweight/Obesity BMI> 30% ICD-10 E66: Yes Diagnosis High BMI/Morbid Obesity BMI> 35% ICD-10 Z68: Yes Outcomes/Goals: Pt sets, maintains & shows weight loss goal & trend during rehab and Other additional outcomes/goals Intervention/Plan: Instruct on ideal BMI & set weight loss goal w/patient, Assist pt to ID & incorporate diet changes for weight loss by S9, Refer to Structured Weight Loss program as appropriate, Encourage goal of using 250- 300dcal per session for weight loss and Other additional plan/interventions 30 day Reassessments:: Progressing Reassessment Notes & Comments:: pt is scheduled to attend nutrition class Healthy Eating Habits Will attend diet classes:: Yes Outcomes/Goals:: Consume diet rich in vegs,fruits,whole grain/high fiber,fish,lean meat, Limit sat/trans fats,cholesterol & added salts & sugars and Other additional outcome/goals: Intervention/Plan:: Assess current eating habits and Other Additional plan/interventions 30-day Reassessments:: Progressing Reassessment Notes & Comments:: pt is scheduled to attend nutrition class Education Gave educational materials for:: Signs & symptoms of hypoglycemia, Signs & symptoms of hyperglycemia, Relate diabetes to coronary artery disease and Healthy eating Nutrition - 60-Day Assessment Weight Mgt (Other Care) Height: 5 ft 7 in Weight:: 245 lb 8 oz BMI: 38.4 Core - 30-Day Assessment Visit Date of Eval: 01/29/24 Session #:: 2 Medication Compliance Preventative Medication(s):: Aspirin, Clopidogrel/P2Y12 inhibit, Statin/lipid and Beta sloan H/O mental health issues: depression, anxiety, or addiction?: Yes Doesn?t believe in the benefits of treatment?: No Believes medications are unnecessary or harmful?: No Has a concern about medication side effects?: No Expresses concern over the cost of medications?: No Outcomes/Goals: Verbalizes medications,desired effect & common side effects @ DC, Pt self-reports following medication regimen, Keeps card in wallet w/medications listed by DC and Other additional outcome/goals: Interventions/plans: Instruct on medication effects & side effects, Review medication list w/patient every two weeks, Instruct importance of taking meds as ordered & assist problem solving and Other additional 30-day Reassessments:: Progressing Reassessment Notes & Comments:: Pt encouraged to take her meds as prescribed. Tobacco Use Tobacco Use: Cigarettes How many cigarettes do you smoke per day?: 20 Years Smokin (Pt stopped in mid December) 30-day Reassessments:: Progressing Reassessment Notes & Comments:: Smoking cessation class encouraged Hypertension Hypertension Diagnosis:: Hypertension ICD-10 I10 Resting Blood Pressure:: 138/80 [place] [employer] Hypertension Guidelines Peak Exercise Blood Pressure:: 138/86 Outcomes/Goals: Able to verbalize/achieve optimal blood pressure <130/80, Incorporates diet changes & exercise for blood pressure control by DC and Other additional outcomes/goals Interventions/plan: Instruct on optimal blood pressure, hypertension & medications, Instruct on effects of sodium, alcohol, stress, exercise &h ypertension and Other additional plan/interventions 30 day Reassessments:: Progressing Reassessment Notes & Comments:: Pt encouraged to take her meds Tobacco Cessation Referral Smoking Cessation Referral:: No Individual Education/Counseling:: No Education Schedule Given:: Yes Psychosocial - 30-Day Assess VIsit Date of Eval: 01/29/24 Session #:: 2 History of previous Mental disease:: Yes History of Emotional Disorders: Anxious and Depression Self-reported stressors Other/Comments:: Family and Other (work) Target Goals Target Goals Psychosocial Test Tool Used:: [employer] QOL Cardiac and PHQ-9 Questionnaire phq-9 Severity Referral to Behavioral Health PS - Interventions: Yes: Attend Stress Management Classes Outcomes/Goals: See list Psychosocial Outcomes/Goals:: ID's personal stressors & 2 strategies to manage stress by discharge and Other Additional outcome/goals: Intervention/Plan: See List Interventions/Plan:: Assess stressors,coping strategies & signs of derpression on admission, Instruct/assist pt to develop coping & personal stress Mgt strategies, Refer to Behavioral Health if appropriate, Refer to Physician if appropriate, Instruct patient to recognize signs & symptoms of depression, In struct patient to recog and Other additional plan/intervention 30-day Reassessments: 30 day Reassessments:: Progressing Reassessment Notes & Comments:: Pt is to attend mental health classes Psychosocial - 60-Day Assess Target Goals Target Goals Referral to Behavioral Health PS - Interventions: Yes: Attend Stress Management Classes Outcomes/Goals: See list Psychosocial Outcomes/Goals:: ID's personal stressors & 2 strategies to manage stress by discharge and Other Additional outcome/goals: Psychosocial - 90-Day Assess Target Goals Target Goals Referral to Behavioral Health PS - Interventions: Yes: Attend Stress Management Classes Psychosocial - Final Assessmen Target Goals Target Goals Referral to Behavioral Health PS - Interventions: Yes: Attend Stress Management Classes Nutrition - 90-Day Assessment Weight Mgt (Other Care) Height: 5 ft 7 in Weight:: 245 lb 8 oz BMI: 38.4 Nutrition - Final Assessment Weight Mgt (Other Care) Height: 5 ft 7 in Weight:: 245 lb 8 oz BMI: 38.4
[2024-01-29 08:22] VITALS: BP 138/80; BMI 38.4
[2024-01-29 08:30] VITALS: BP 138/80
== END 2024-02-06 23:59 ==
LOC: CR 13:00
PROVIDERS: PCP Family Medicine; Referring Provider Internal Medicine Cardiovascular Disease; Visit Provider Internal Medicine Cardiovascular Disease
DX: I21.4 Non-ST elevation (NSTEMI) myocardial infarction (principal); I10 Essential (primary) hypertension; F17.200 Nicotine dependence, unspecified, uncomplicated
CPT/HCPCS: 93798

== ENCOUNTER 2024-02-08 04:32 | Outpatient (RCR) | payer BC, SELFPAY ==
[2024-02-07 00:53] VITALS: BP 138/80
== END 2024-03-08 23:59 ==
LOC: CR 04:32
PROVIDERS: PCP Family Medicine; Referring Provider Internal Medicine Cardiovascular Disease; Visit Provider Internal Medicine Cardiovascular Disease
DX: I21.4 Non-ST elevation (NSTEMI) myocardial infarction (principal); I10 Essential (primary) hypertension; F17.200 Nicotine dependence, unspecified, uncomplicated
CPT/HCPCS: 93798

== ENCOUNTER → 2024-04-13 | Outpatient (CLI) | payer BC, SELFPAY ==
[2024-04-13 11:50] LABS: Absolute Lymphocyte Count 1.27 X10^3/uL (0.83-4.51); Absolute Neutrophil Count 3.3 X10^3/uL (2.0-7.7); Basophil# 0.05 X10^3/uL; Eosinophil# 0.26 X10^3/uL; Hematocrit 34.3 % (37-47); Hemoglobin 11.2 g/dL (12.0-15.0); Lymphocyte # 1.27 X10^3/ul (0.83-4.51); Lymphocyte % 24.2 % (19-41); Mean Corp Hgb Conc 32.7 g/dL (32-36); Mean Corpuscular Volume 85.8 fL (81-99); Mean Platelet Vol. 10.7 fl (6.2-12.0); Monocyte# 0.33 X10^3/uL; Monocyte% 6.3 % (0-10); NRBC Flagged by Analyzer 0 % (0-5); Neutrophil # 3.32 X10^3/uL (2.7-7.7); Neutrophil % 63.3 % (47-70); Platelet Count 309 K/mm3 (150-450); RBC Distribution Width CV 14.4 % (11.6-14.6); RBC Distribution Width SD 44.9 fl (35.1-43.9); White Blood Count 5.2 K/mm3 (4.4-11.0)
[2024-04-13 12:13] LABS: ALB/GLOB Ratio 0.7 RATIO (0.9-2.4); AST(SGOT) 15 U/L (15-37); Alanine Aminotransfer ALT/SGPT 22 U/L (13-56); Albumin, Serum 3.4 g/dL (3.2-5.0); Alkaline Phosphatase 71 U/L (45-117); Anion Gap 6 (5-15); BUN 18 mg/dL (7-18); BUN/Creat Ratio 21.8 RATIO (10-20); Chloride 106 mmol/L (98-107); Cholesterol 163 mg/dL (200); Creatinine, Serum 0.82 mg/dL (0.55-1.02); EST Glomerular Filtration Rate 81 mL/min (>60); Est Glom Filt Rate - Afr Amer 98 mL/min (>60); Globulin 4.6 g/dL (2.2-4.2); Glucose 94 mg/dL (74-106); High Density Lipoprotein 74 mg/dL; Potassium 4.2 mmol/L (3.5-5.1); Sodium Level 137 mmol/L (136-145); Triglycerides 100 mg/dL; Very Low Density Lipoprotein 20 mg/dL (5-40)
== END | disposition home or self-care (01) ==
LOC: LAB 11:03
PROVIDERS: PCP Family Medicine; Referring Provider Physician Assistant Medical; Visit Provider Physician Assistant Medical
DX: I25.10 Atherosclerotic heart disease of native coronary artery without angina pectoris (principal); E78.5 Hyperlipidemia, unspecified
CPT/HCPCS: 36415; 80053; 80061; 83695; 85025